=== PATIENT | male | born 1960 | race Caucasian/White ===

== ENCOUNTER → 2017-09-30 14:21 | Outpatient (CLI) | payer OTHER, SELFPAY ==
[2017-09-30 16:00] LABS: Absolute Lymphocyte Count 2.01 X10^3/ul (0.83-4.51); Basophil# 0.05 X10^3/uL; Basophil% 0.8 % (0-1); Eosinophil# 0.34 X10^3/uL; Eosinophils% 5.7 % (0-5); Hematocrit 46.2 % (40-54); Hemoglobin 14.9 g/dl (13.0-16.5); Lymphocyte # 2.01 X10^3/ul (4.0); Lymphocyte % 33.9 % (19-41); Mean Corp Hgb Conc 32.3 g/gl (32-36); Mean Corpuscular Hgb 29.4 pg (27.0-32.0); Mean Corpuscular Volume 91.3 fL (80-94); Mean Platelet Vol. 10.2 fl (6.2-12.0); Monocyte# 0.48 X10^3/uL; Monocyte% 8.1 % (0-10); Neutrophil # 3.04 X10^3/uL (2.7-7.7); Neutrophil % 51.3 % (47-70); Platelet Count 183 K/mm3 (150-450); RBC Distribution Width CV 13.4 % (11.6-14.6); RBC Distribution Width SD 44.1 fl (35.1-43.9); Red Blood Count 5.06 M/mm3 (4.6-6.2); White Blood Count 5.9 K/mm3 (4.4-11.0)
[2017-09-30 16:01] LABS: POSITIVE COUNT NO; POSITIVE DIFFERENTIAL NO; POSITIVE MORPHOLOGY NO
[2017-09-30 16:29] LABS: Thyroid Stim Hormone (TSH) 1.18 uIU/mL (0.358-3.74)
== END ==
PROVIDERS: Family Provider Family Medicine; PCP Family Medicine; Visit Provider Family Medicine
DX: R53.83 Other fatigue (principal)
CPT/HCPCS: 36415; 84403; 84443; 85025

== ENCOUNTER → 2018-01-21 10:20 | Outpatient (CLI) | payer OTHER, SELFPAY ==
--- NOTE | 2018-01-21 10:23 | RAD_ITS ---
STUDY: X-RAY CHEST REASON FOR EXAM: Male, 57 years old. Trauma TECHNIQUE: Frontal and lateral views of the chest COMPARISON: 03/06/2013 FINDINGS: The lungs are clear. There are no pleural effusions. There is no pneumothorax. The heart is normal in size. The visualized osseous structures are within normal limits. RAD/Chest PA and Lateral IMPRESSION: No acute thoracic pathology. Electronically Signed: Celso Dougherty, at 17:54 EDT Tel , Service support ,
== END ==
PROVIDERS: Family Provider Family Medicine; PCP Family Medicine; Visit Provider Family Medicine
DX: R05 Cough (principal)
CPT/HCPCS: 71046

== ENCOUNTER → 2018-04-01 08:44 | Outpatient (CLI) | payer OTHER, SELFPAY ==
[2018-04-01 11:41] LABS: AST(SGOT) 15 U/L (15-37); Alanine Aminotransfer ALT/SGPT 29 U/L (16-61); Albumin, Serum 3.9 g/dL (3.2-5.0); Alkaline Phosphatase 65 U/L (45-117); Anion Gap 8 (5-15); BUN 15 mg/dL (7-18); BUN/Creat Ratio 15.5 RATIO (10-20); Bilirubin, Direct 0.16 mg/dL (0.00-0.30); Chloride 102 mmol/L (98-107); Cholesterol 129 mg/dL (200); Creatinine, Serum 0.97 mg/dL (0.70-1.30); EST Glomerular Filtration Rate 84 mL/min (>60); Est Glom Filt Rate - Afr Amer 102 mL/min (>60); Globulin 3.4 g/dL (2.2-4.2); Glucose 146 mg/dL (74-106); High Density Lipoprotein 43 mg/dL; Potassium 4.2 mmol/L (3.5-5.1); Protein, Total 7.3 g/dL (6.4-8.2); Sodium Level 140 mmol/L (136-145); Triglycerides 142 mg/dL; Very Low Density Lipoprotein 28 mg/dL (5-40)
== END ==
PROVIDERS: Family Provider Family Medicine; PCP Family Medicine; Visit Provider Family Medicine
DX: E11.9 Type 2 diabetes mellitus without complications (principal)
CPT/HCPCS: 36415; 80048; 80061; 80076

== ENCOUNTER → 2019-01-27 | Outpatient (CLI) | payer OTHER, SELFPAY ==
[2019-01-25 16:12] VITALS: BMI 29.7
[2019-01-27 10:45] LABS: AST(SGOT) 9 U/L (15-37); Alanine Aminotransfer ALT/SGPT 24 U/L (16-61); Albumin, Serum 3.6 g/dL (3.2-5.0); Alkaline Phosphatase 72 U/L (45-117); Bilirubin, Direct 0.17 mg/dL (0.00-0.30); Cholesterol 123 mg/dL (200); Globulin 3.1 g/dL (2.2-4.2); High Density Lipoprotein 51 mg/dL; Protein, Total 6.7 g/dL (6.4-8.2); Triglycerides 99 mg/dL; Very Low Density Lipoprotein 20 mg/dL (5-40)
== END | disposition home or self-care (01) ==
LOC: MFPLAB 08:16
PROVIDERS: Family Provider Family Medicine; PCP Family Medicine; Visit Provider Internal Medicine Cardiovascular Disease
DX: E78.5 Hyperlipidemia, unspecified (principal)
CPT/HCPCS: 36415; 80061; 80076

== ENCOUNTER → 2019-03-07 15:40 | Outpatient (CLI) | payer OTHER, SELFPAY ==
[2019-01-25 16:12] VITALS: BMI 29.7
[2019-03-07 18:04] LABS: PSA,Total - Annual Screen 2.76 ng/mL (0.00-4.00)
== END ==
PROVIDERS: Family Provider Family Medicine; PCP Family Medicine; Referring Provider Urology; Visit Provider Urology
DX: Z12.5 Encounter for screening for malignant neoplasm of prostate (principal)
CPT/HCPCS: 36415; 84153; G0103

== ENCOUNTER → 2019-06-01 | Outpatient (CLI) | payer OTHER, SELFPAY ==
[2019-01-25 16:12] VITALS: BMI 29.7
[2019-06-01 18:04] LABS: Anion Gap 8 (5-15); BUN 13 mg/dL (7-18); BUN/Creat Ratio 13.3 RATIO (10-20); Calcium,Total 8.8 mg/dL (8.5-10.1); Chloride 105 mmol/L (98-107); Creatinine, Serum 0.98 mg/dL (0.70-1.30); EST Glomerular Filtration Rate 83 mL/min (>60); Est Glom Filt Rate - Afr Amer 100 mL/min (>60); Glucose 131 mg/dL (74-106); Potassium 3.8 mmol/L (3.5-5.1); Sodium Level 145 mmol/L (136-145)
== END | disposition home or self-care (01) ==
LOC: MFPLAB 16:48
PROVIDERS: Family Provider Family Medicine; PCP Family Medicine; Referring Provider Family Medicine; Visit Provider Family Medicine
DX: E11.9 Type 2 diabetes mellitus without complications (principal)
CPT/HCPCS: 36415; 80048

== ENCOUNTER → 2019-07-11 14:07 | Outpatient (CLI) | payer OTHER, SELFPAY ==
[2019-01-25 16:12] VITALS: BMI 29.7
[2019-07-11 13:40] VITALS: BMI 27.9
--- NOTE | 2019-07-11 14:08 | CT_ITS ---
STUDY: LOW DOSE CT LUNG CANCER SCREENING REASON FOR EXAM: Male, 58 years old. The patient is a smoking history a 72 pack year RADIATION DOSAGE (If Supplied By Facility): CTDIvol = ( 4.02 ) mGy, DLP = ( 115.31 ) mGycm TECHNIQUE: No contrast was administered. Low dose technique was utilized (average mAS-38 and kVp 120). 1.25 mm axial source images with a slice interval of 1.25-mm were reconstructed in lung windows. 2.5 mm axial source images with a slice interval of 2.5-mm were reconstructed in lung windows. 5.0 mm axial source images with a slice interval of 5.0-mm were reconstructed in soft tissue windows. Nodule measured using lung windows on PACS and/or independent workstation with automated measurement of minimum and maximum diameter. Nodule measurement reported as average diameter rounded to the nearest whole number. Growth is defined as an increase ins size of greater than 1.5 mm. COMPARISON: None. NODULES: There is a 4.9 mm noncalcified nodule in the anterior aspect of the right lower lobe adjacent to the right minor fissure. This is seen on axial image #94 and coronal image #180. Emphysema: No significant emphysema is seen. Aorta: Atherosclerotic calcification of the aortic arch. Coronary arteries: Coronary artery calcification. Heart: Unremarkable. Mediastinal nodes: No significant nodes are seen. Other chest and abdominal findings: CT/Low Dose CT Lung Screening IMPRESSION: Lung-RADS category 2 - Continue annual screening with LDCT in 12 months. IMPORTANT NOTES FOR USE: ACR Lung-RADS Version 1.0 Assessment Categories Release Date: November 20, 2013 Category: Coded 0-4 bases on nodule(s) with highest degree of suspicion. Negative screen is defined as categories 1 and 2; a positive screen is defined as categories 3 and 4. Category 3 and 4A nodules that are unchanged on interval CT should be coded as category 2, and individuals returned to screening in 12 months. Category 4X: Category 3 or 4 nodules with additional imaging findings that increase the suspicion of lung cancer, such as spiculation, GGN that doubles in size in 1 year, enlarged lymph notes, etc. Category Modifiers: S (significant finding unrelated to lung cancer) and C (prior history of treated lung cancer) may be added to the 0-4 Lung-RADS Electronically Signed: Pillo Gary, at 14:42 EST , Service support ,
== END ==
PROVIDERS: Family Provider Family Medicine; PCP Family Medicine; Referring Provider Nurse Practitioner Family; Visit Provider Nurse Practitioner Family
DX: Z12.2 Encounter for screening for malignant neoplasm of respiratory organs (principal); Z87.891 Personal history of nicotine dependence
CPT/HCPCS: G0297

== ENCOUNTER → 2019-08-23 10:39 | Outpatient (CLI) | payer OTHER, SELFPAY ==
[2019-07-11 13:40] VITALS: BMI 27.9
--- NOTE | 2019-08-23 10:43 | RAD_ITS ---
STUDY: X-RAY CHEST REASON FOR EXAM: Male, 58 years old. COUGH X2 WEEKS TECHNIQUE: Frontal and lateral views of the chest. COMPARISON: 01/21/18. FINDINGS: The lungs are hyperexpanded. There are coarsened interstitial markings suggestive of mild chronic fibrosis. No gross focal infiltrates. No gross effusions. Normal size heart. Normal mediastinum and florinda. There is prominence of the pulmonary hilar arteries without peripheral pulmonary vascular congestion, suggesting pulmonary hypertension. Normal visualized aortic arch and descending thoracic aorta. There are diffuse degenerative changes of the visualized thoracic spine. There is degenerative osteoarthritis of the bilateral shoulders. There is no demonstrated abnormality of the visualized soft tissue structures of the upper abdomen. RAD/Chest PA and Lateral IMPRESSION: No acute chest disease. No significant change. 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 Electronically Signed: David Coates MD at 23:00 EST , Service support ,
== END ==
PROVIDERS: PCP Family Medicine; Referring Provider Family Medicine; Visit Provider Family Medicine
DX: R05 Cough (principal)
CPT/HCPCS: 71046

== ENCOUNTER → 2020-01-30 12:11 | Outpatient (CLI) | payer OTHER, SELFPAY ==
[2020-01-25 15:14] VITALS: BMI 28.9
[2020-01-30 15:32] LABS: AST(SGOT) 11 U/L (15-37); Alanine Aminotransfer ALT/SGPT 24 U/L (16-61); Albumin, Serum 3.9 g/dL (3.2-5.0); Alkaline Phosphatase 98 U/L (45-117); Anion Gap 6 (5-15); BUN 15 mg/dL (7-18); BUN/Creat Ratio 18.5 RATIO (10-20); Bilirubin, Direct 0.24 mg/dL (0.00-0.30); Calcium,Total 8.7 mg/dL (8.5-10.1); Chloride 102 mmol/L (98-107); Cholesterol 107 mg/dL (200); Creatinine, Serum 0.81 mg/dL (0.70-1.30); EST Glomerular Filtration Rate 103 mL/min (>60); Est Glom Filt Rate - Afr Amer 124 mL/min (>60); Globulin 3.3 g/dL (2.2-4.2); Glucose 106 mg/dL (74-106); High Density Lipoprotein 40 mg/dL; Potassium 3.9 mmol/L (3.5-5.1); Protein, Total 7.2 g/dL (6.4-8.2); Sodium Level 140 mmol/L (136-145); Triglycerides 102 mg/dL; Very Low Density Lipoprotein 20 mg/dL (5-40)
== END ==
PROVIDERS: PCP Family Medicine; Visit Provider Family Medicine
DX: E11.9 Type 2 diabetes mellitus without complications (principal); E78.5 Hyperlipidemia, unspecified
CPT/HCPCS: 36415; 80048; 80061; 80076

== ENCOUNTER → 2020-03-21 08:58 | Outpatient (CLI) | payer OTHER, SELFPAY ==
[2020-01-25 15:14] VITALS: BMI 28.9
[2020-03-21 09:33] LABS: PSA,Total - Annual Screen 2.95 ng/mL (0.00-4.00)
== END ==
PROVIDERS: PCP Family Medicine; Referring Provider Urology; Visit Provider Urology
DX: Z12.5 Encounter for screening for malignant neoplasm of prostate (principal)
CPT/HCPCS: 36415; 84153; G0103

== ENCOUNTER → 2020-05-21 10:00 | Outpatient (CLI) | payer OTHER, SELFPAY ==
[2020-01-25 15:14] VITALS: BMI 28.9
== END ==
PROVIDERS: PCP Family Medicine; Referring Provider Internal Medicine Cardiovascular Disease; Visit Provider Internal Medicine Cardiovascular Disease
DX: R00.1 Bradycardia, unspecified (principal); R42 Dizziness and giddiness; R53.83 Other fatigue; I25.10 Atherosclerotic heart disease of native coronary artery without angina pectoris
CPT/HCPCS: 93225; 93226

== ENCOUNTER → 2020-05-23 10:03 | Outpatient (CLI) | payer OTHER, SELFPAY ==
[2020-01-25 15:14] VITALS: BMI 28.9
[2020-05-23 11:25] LABS: Anion Gap 6 (5-15); BUN 14 mg/dL (7-18); BUN/Creat Ratio 15.3 RATIO (10-20); Chloride 102 mmol/L (98-107); Creatinine, Serum 0.92 mg/dL (0.70-1.30); EST Glomerular Filtration Rate 89 mL/min (>60); Est Glom Filt Rate - Afr Amer 108 mL/min (>60); Glucose 115 mg/dL (74-106); Magnesium 2.1 mg/dL (1.6-2.6); Sodium Level 140 mmol/L (136-145)
== END ==
PROVIDERS: PCP Family Medicine; Referring Provider Internal Medicine Cardiovascular Disease; Visit Provider Internal Medicine Cardiovascular Disease
DX: I49.1 Atrial premature depolarization (principal); I49.3 Ventricular premature depolarization; I25.10 Atherosclerotic heart disease of native coronary artery without angina pectoris; I10 Essential (primary) hypertension; Z95.5 Presence of coronary angioplasty implant and graft
CPT/HCPCS: 36415; 80048; 83735; 84443

== ENCOUNTER → 2020-07-16 12:46 | Outpatient (CLI) | payer OTHER, SELFPAY ==
[2020-01-25 15:14] VITALS: BMI 28.9
[2020-07-16 12:12] VITALS: BMI 28.3
--- NOTE | 2020-07-16 12:48 | CT_ITS ---
STUDY: LOW DOSE CT LUNG CANCER SCREENING REASON FOR EXAM: Male, 59 years old. FORMER SMOKER, QUIT 2012. 1.5 PPD X 36 YEARS. RADIATION DOSAGE (If Supplied By Facility): CTDIvol = ( 3.40 ) mGy, DLP = ( 111.46 ) mGycm TECHNIQUE: No contrast was administered. Low dose technique was utilized (average mAS-38 and kVp 120). 1.25 mm axial source images with a slice interval of 1.25-mm were reconstructed in lung windows. 2.5 mm axial source images with a slice interval of 2.5-mm were reconstructed in lung windows. 5.0 mm axial source images with a slice interval of 5.0-mm were reconstructed in soft tissue windows. Nodule measured using lung windows on PACS and/or independent workstation with automated measurement of minimum and maximum diameter. Nodule measurement reported as average diameter rounded to the nearest whole number. Growth is defined as an increase ins size of greater than 1.5 mm. COMPARISON: Comparison is made with prior study dated 07/11/2019. NODULES: Stable 4.9 mm noncalcified nodule in the anterior aspect of the right lower lobe adjacent to the right minor fissure as seen on axial image #2017. Emphysema: No significant emphysematous changes are seen. Endobronchial lesion: None Aorta: Atherosclerotic plaque formation at the level of the aortic arch. Coronary arteries: Coronary artery calcification. Heart: Unremarkable. Pulmonary artery: Unremarkable. Mediastinal nodes: Small benign-appearing mediastinal lymph nodes. Other chest and abdominal findings: Degenerative changes of the dorsal spine. CT/Low Dose CT Lung Screening IMPRESSION: Lung-RADS category 2 - Continue annual screening with LDCT in 12 months. IMPORTANT NOTES FOR USE: ACR Lung-RADS Version 1.0 Assessment Categories Release Date: November 20, 2013 Category: Coded 0-4 bases on nodule(s) with highest degree of suspicion. Negative screen is defined as categories 1 and 2; a positive screen is defined as categories 3 and 4. Category 3 and 4A nodules that are unchanged on interval CT should be coded as category 2, and individuals returned to screening in 12 months. Category 4X: Category 3 or 4 nodules with additional imaging findings that increase the suspicion of lung cancer, such as spiculation, GGN that doubles in size in 1 year, enlarged lymph notes, etc. Category Modifiers: S (significant finding unrelated to lung cancer) and C (prior history of treated lung cancer) may be added to the 0-4 Lung-RADS Electronically Signed: Pillo Gary, at 13:30 EST , Service support ,
== END ==
PROVIDERS: PCP Family Medicine; Visit Provider Nurse Practitioner Family
DX: Z12.2 Encounter for screening for malignant neoplasm of respiratory organs (principal); Z87.891 Personal history of nicotine dependence
CPT/HCPCS: G0297

== ENCOUNTER → 2020-09-02 12:04 | Outpatient (CLI) | payer OTHER, SELFPAY ==
[2020-07-16 12:12] VITALS: BMI 28.3
--- NOTE | 2020-09-02 12:20 | RAD_ITS ---
STUDY: X-RAY - RIGHT SHOULDER REASON FOR EXAM: Male, 59 years old. CHRONIC SHOULDER PAIN, NKI TECHNIQUE: 4 view(s) of the shoulder. COMPARISON: None. FINDINGS: There is mild degenerative arthrosis of the glenohumeral articulation. Normal acromioclavicular joint. Normal acromion. Normal humeral head and visualized proximal humerus. The soft tissue structures are unremarkable. Normal visualized pulmonary apex. RAD/Shoulder min 2 Views IMPRESSION: Mild degree of degenerative changes. Electronically Signed: Pillo Gary MD at 12:17 EST , Service support ,
--- NOTE | 2020-09-02 12:20 | RAD_ITS ---
STUDY: X-RAY - LEFT SHOULDER REASON FOR EXAM: Male, 59 years old. CHRONIC SHOULDER PAIN, NKI TECHNIQUE: 4 view(s) of the shoulder. COMPARISON: None. FINDINGS: Normal glenohumeral articulation. Normal acromioclavicular joint. Normal acromion. Normal humeral head and visualized proximal humerus. The soft tissue structures are unremarkable. Normal visualized pulmonary apex. RAD/Shoulder min 2 Views IMPRESSION: Normal x-ray examination of the shoulder. Electronically Signed: Pillo Gary MD at 12:21 EST , Service support ,
== END ==
PROVIDERS: PCP Family Medicine; Referring Provider Family Medicine; Visit Provider Family Medicine
DX: M25.511 Pain in right shoulder (principal); M25.512 Pain in left shoulder
CPT/HCPCS: 73030

== ENCOUNTER 2020-10-02 09:30 | Outpatient (RCR) | payer OTHER, SELFPAY ==
[2020-07-16 12:12] VITALS: BMI 28.3
--- NOTE | 2020-09-11 09:32 | HP.PTEVAL_ITS ---
Patient's Visit Information HEIDY DELEON is a 59 year old M referred to Physical Therapy by Dr. Pradeep Alvarado MD with a diagnosis of B shoulder pain. Date of Evaluation: 09/11/20 Physical Therapist: Omega Snyder PT, ATC - Visit Plan Frequency: 2x /Week Duration: 1 Week Plan: Issue and instruct pt after 2 sessions of B rot cuff strengthening and scap stab ex's. - Subjective Pt notes B shoulder pain for years. Pt notes his pain has progressively worsened over the past few years. Pt reports his pain has an insidious onset in nature. Pt reports sleep difficulty secondary to pain. Pt reports he has severe pain anytime he is laying on it. Pt also notes he had a cortisone injection last week in the R shoulder that has helped with pain and movement. Pt has had several xrays over the year which revealed OA in B shoulders. No tingling or numbness at this time. Pt reports reaching behid his back results in increased pain. Pt is R hand dominant. R shoulder pain is worse than L shoulder pain. R shoulder 3-7/10, L shoulder 2-5/10 - Pain R shoulder pain Pain Intensity (Out of 10): 3 Pain Intensity Range: 7 Lshoulder pain Pain Intensity (Out of 10): 2 Pain Intensity Range: 5 - Objective Neuro: B UE sensation is WNL to light touch. B bicepital reflex= 1/3. Palpati on: Pt is sore along the LHB tendon and supraspinatus in R shoulder. No obvious deformity. ROM: L shoulder flex= 145, abd= 145, ER= 15, IR WNL; R shoulder flex= 120, abd= 110, ER 10, IR moderately limited. MMT: R shoulder ER 4/5. All other measurements 4+/5 in available ROM. Special testing: POs empty can and impingement tests - Goals Goal 1:: I with a HEP after 2 sessions Goal Time Frame: 2 Weeks - Rehabilitation Potential Physical Therapy Diagnosis: Pt has B shoulder pain, weakness, and limited ROM secondary to impingement syndrome of B shoulders Rehabilitation Potential: Good - Anticipated Interventions Patient/Client Instruction: Educate patient on: Condition, Plan of Care For the Purpose of:: To improve self management Therapeutic Exercise to Include: Strength training, Body mechanics, Active ROM, Scapular Strength/Stabilization For the Purpose of:: To decrease pain, To increase ROM, To improve muscle performance and motor function Cryotherapy (ice pack, ice massage): Yes For the Purpose of:: To decrease pain Thank you for the opportunity to evaluate your patient. For Medicare and Medicare HMO plans, please review the plan of care and approve it. It will need to be FAXED BACK to us at [phone] for Medicare purposes. For Medicare only, by signing this I certify the plan of care. Please let me know if there are questions or concerns regarding this plan of care. Physician Signature: Date:
--- NOTE | 2021-02-17 12:33 | HP.PTDCNRP_ITS ---
HEIDY DELEON was seen in my office for initial evaluation on 09/11/20. The following Plan of Care was established for this patient: Initial Frequency: 2x /Week Initial Duration: 1 Week Patient/Client Instruction: Educate patient on: Condition, Plan of Care For the Purpose of:: To improve self management Therapeutic Exercise to Include: Strength training, Body mechanics, Active ROM, Scapular Strength/Stabilization For the Purpose of:: To decrease pain, To increase ROM, To improve muscle performance and motor function Cryotherapy (ice pack, ice massage): Yes For the Purpose of:: To decrease pain This patient was last seen in our office . Pertinent comments regarding their Physical therapy will appear below: Pt was treated for 3 PT visits for B shoulder pain through the date of 10/02/2020. Pt has not returned through this date and is discharged at this time. At this point I will be discontinuing this patient from physical therapy. I wo uld be happy to see this patient again in the future if found appropriate by the physician. Thank you! Omega Snyder, PT, ATC Balance/Gait/Functional tests - Balance/Special Test Scores Quick DASH Score: 15.9075
== END 2020-10-02 19:00 | disposition home or self-care (01) ==
LOC: PT 09:30
PROVIDERS: PCP Family Medicine; Referring Provider Family Medicine; Visit Provider Family Medicine
DX: M25.511 Pain in right shoulder (principal); M25.512 Pain in left shoulder
CPT/HCPCS: 97110; 97161

== ENCOUNTER 2020-10-08 14:58 | Outpatient (RCR) | payer OTHER, SELFPAY ==
[2020-07-16 12:12] VITALS: BMI 28.3
[2020-10-08] MEDS: COVID-19 VACC, MRNA(PFIZER)/PF 30 MCG/0.3 ML SYRINGE IM (08:50)
[2020-10-29] MEDS: COVID-19 VACC, MRNA(PFIZER)/PF 30 MCG/0.3 ML SYRINGE IM (09:06)
== END 2020-12-31 23:59 ==
LOC: IMMUN 14:58
PROVIDERS: PCP Family Medicine; Referring Provider Family Medicine; Visit Provider Family Medicine
DX: Z23 Encounter for immunization (principal)
CPT/HCPCS: 0001A; 0002A; 91300

== ENCOUNTER → 2020-12-05 13:48 | Outpatient (CLI) | payer OTHER, SELFPAY ==
[2020-07-16 12:12] VITALS: BMI 28.3
[2020-12-05 15:45] LABS: Anion Gap 2 (5-15); BUN 14 mg/dL (7-18); BUN/Creat Ratio 18.6 RATIO (10-20); Chloride 103 mmol/L (98-107); Cholesterol 148 mg/dL (200); Creatinine, Serum 0.75 mg/dL (0.70-1.30); EST Glomerular Filtration Rate 111 mL/min (>60); Est Glom Filt Rate - Afr Amer 135 mL/min (>60); Glucose 108 mg/dL (74-106); High Density Lipoprotein 53 mg/dL; Potassium 3.8 mmol/L (3.5-5.1); Sodium Level 139 mmol/L (136-145); Triglycerides 186 mg/dL; Very Low Density Lipoprotein 37 mg/dL (5-40)
== END ==
PROVIDERS: PCP Family Medicine; Referring Provider Family Medicine; Visit Provider Family Medicine
DX: E11.9 Type 2 diabetes mellitus without complications (principal)
CPT/HCPCS: 36415; 80048; 80061

== ENCOUNTER → 2021-06-12 11:16 | Outpatient (CLI) | payer OTHER, SELFPAY ==
[2021-06-12 12:54] LABS: Anion Gap 4 (5-15); BUN 12 mg/dL (7-18); BUN/Creat Ratio 14.4 RATIO (10-20); Calcium,Total 9.1 mg/dL (8.5-10.1); Chloride 104 mmol/L (98-107); Cholesterol 126 mg/dL (200); Creatinine, Serum 0.83 mg/dL (0.70-1.30); EST Glomerular Filtration Rate 99 mL/min (>60); Est Glom Filt Rate - Afr Amer 120 mL/min (>60); Glucose 113 mg/dL (74-106); High Density Lipoprotein 50 mg/dL; PSA,Total - Annual Screen 2.65 ng/mL (0.00-4.00); Potassium 4.1 mmol/L (3.5-5.1); Sodium Level 138 mmol/L (136-145); Triglycerides 99 mg/dL; Very Low Density Lipoprotein 20 mg/dL (5-40)
== END ==
PROVIDERS: PCP Family Medicine; Referring Provider Family Medicine; Visit Provider Family Medicine
DX: E11.9 Type 2 diabetes mellitus without complications (principal); Z12.5 Encounter for screening for malignant neoplasm of prostate
CPT/HCPCS: 36415; 80048; 80061; 84153; G0103

== ENCOUNTER → 2021-06-23 08:32 | Outpatient (CLI) | payer OTHER, SELFPAY | PROVIDERS: PCP Family Medicine; Referring Provider Internal Medicine Cardiovascular Disease; Visit Provider Internal Medicine Cardiovascular Disease | DX: I49.3 Ventricular premature depolarization (principal); I49.1 Atrial premature depolarization; R42 Dizziness and giddiness | CPT/HCPCS: 93225; 93226 ==

== ENCOUNTER 2021-07-29 13:49 | Outpatient (CLI) | payer OTHER, SELFPAY ==
--- NOTE | 2021-07-29 13:55 | CT_ITS ---
STUDY: LOW DOSE CT LUNG CANCER SCREENING REASON FOR EXAM: Male, 60 years old. Lung cancer screening -- 80 pk yr hx; former smoker;asymptomatic RADIATION DOSAGE (If Supplied By Facility): CTDIvol = ( 3.18 ) mGy, DLP = ( 93.30 ) mGycm TECHNIQUE: No contrast was administered. Low dose technique was utilized (average mAS-38 and kVp 120). 1.25 mm axial source images with a slice interval of 1.25-mm were reconstructed in lung windows. 2.5 mm axial source images with a slice interval of 2.5-mm were reconstructed in lung windows. 5.0 mm axial source images with a slice interval of 5.0-mm were reconstructed in soft tissue windows. Nodule measured using lung windows on PACS and/or independent workstation with automated measurement of minimum and maximum diameter. Nodule measurement reported as average diameter rounded to the nearest whole number. Growth is defined as an increase ins size of greater than 1.5 mm. COMPARISON: Comparison is made with prior study dated 07/16/2020. NODULES: Stable 4.9 mm noncalcified nodule in the anterior aspect of the right lower lobe adjacent to the right minor fissure as seen on axial image #109. Emphysema: No significant emphysema is seen. Endobronchial lesion: None Aorta: Atherosclerotic plaque formation of the aortic arch. Coronary arteries: Coronary artery calcification. Heart: Unremarkable Pulmonary artery: Unremarkable Mediastinal nodes: Unremarkable Other chest and abdominal findings: CT/Low Dose CT Lung Screening IMPRESSION: Lung-RADS category 2 - Continue annual screening with LDCT in 12 months. IMPORTANT NOTES FOR USE: ACR Lung-RADS Version 1.1 Assessment Categories Release Date: 2018 Category: Coded 0-4 bases on nodule(s) with highest degree of suspicion. Negative screen is defined as categories 1 and 2; a positive screen is defined as categories 3 and 4. Category 3 and 4A nodules that are unchanged on interval CT should be coded as category 2, and individuals returned to screening in 12 months. Category 4X: Category 3 or 4 nodules with additional imaging findings that increase the suspicion of lung cancer, such as spiculation, GGN that doubles in size in 1 year, enlarged lymph notes, etc. Category Modifiers: S (significant finding unrelated to lung cancer) Electronically Signed: Pillo Gary MD at 14:25 EST , Service support ,
== END 2021-07-29 23:59 | disposition short-term general hospital (02) ==
PROVIDERS: PCP Family Medicine; Referring Provider Nurse Practitioner Family; Visit Provider Nurse Practitioner Family
DX: Z12.2 Encounter for screening for malignant neoplasm of respiratory organs (principal); Z87.891 Personal history of nicotine dependence
CPT/HCPCS: 71271

== ENCOUNTER 2021-08-13 10:47 | Outpatient (CLI) | payer OTHER, SELFPAY ==
[2021-08-13 12:37] LABS: Absolute Lymphocyte Count 1.75 X10^3/uL (0.83-4.51); Absolute Neutrophil Count 3.5 X10^3/uL (2.0-7.7); Basophil# 0.04 X10^3/uL; Basophil% 0.7 % (0-1); Eosinophil# 0.17 X10^3/uL; Eosinophils% 2.9 % (0-5); Hematocrit 46.5 % (40-54); Hemoglobin 15.1 g/dL (13.0-16.5); Lymphocyte # 1.75 X10^3/ul (0.83-4.51); Lymphocyte % 29.8 % (19-41); Mean Corp Hgb Conc 32.5 g/dL (32-36); Mean Corpuscular Hgb 30.5 pg (27.0-32.0); Mean Corpuscular Volume 93.9 fL (80-94); Mean Platelet Vol. 10.6 fl (6.2-12.0); Monocyte# 0.41 X10^3/uL; NRBC Flagged by Analyzer 0 % (0-5); Neutrophil # 3.49 X10^3/uL (2.7-7.7); Neutrophil % 59.4 % (47-70); Platelet Count 176 K/mm3 (150-450); RBC Distribution Width CV 13.2 % (11.6-14.6); RBC Distribution Width SD 45.3 fl (35.1-43.9); Red Blood Count 4.95 M/mm3 (4.6-6.2); White Blood Count 5.9 K/mm3 (4.4-11.0)
[2021-08-13 12:46] LABS: Free T3 2.1 pg/mL (2.18-3.98); T4 Free Direct 1.07 ng/dL (0.76-1.46); Thyroid Stim Hormone (TSH) 1.18 uIU/mL (0.358-3.74)
== END 2021-08-13 23:59 | disposition short-term general hospital (02) ==
LOC: MFPLAB 10:48
PROVIDERS: PCP Family Medicine; Referring Provider Family Medicine; Visit Provider Physician Assistant Medical
DX: R53.83 Other fatigue (principal); E11.9 Type 2 diabetes mellitus without complications; I25.10 Atherosclerotic heart disease of native coronary artery without angina pectoris; E78.5 Hyperlipidemia, unspecified; R00.1 Bradycardia, unspecified; I10 Essential (primary) hypertension
CPT/HCPCS: 36415; 84439; 84443; 84481; 85025

== ENCOUNTER 2021-08-19 07:15 | Outpatient (CLI) | payer OTHER, SELFPAY ==
--- NOTE | 2021-08-19 07:17 | ECHOCS_ITS ---
Reason For Study: ARRHYTHMIA Procedure This was a 2D Doppler, Color Flow transthoracic echocardiogram. The study was technically difficult. Due to arrhythmia. Contrast injection was performed. Exam performed in department. Left Ventricle Normal LV size. Left ventricular systolic function is normal. The estimated ejection fraction is 55 %. Unable to assess diastolic dysfunction. No regional wall motion abnormalities noted. Right Ventricle Normal RV size. Normal systolic function. Atria Normal left atrium. Normal right atrium. No doppler evidence for ASD. Mitral Valve There is no mitral annular calcification. Normal mitral valve. Trivial mitral valve insufficiency. Tricuspid Valve Normal tricuspid valve. Trivial tricuspid valve insufficiency. Right ventricular systolic pressure estimated to be 33 mmHg. Aortic Valve Trisinus/trileaflet aortic valve. Normal aortic valve. Pulmonic Valve The pulmonic valve is not well visualized. Great Vessels Borderline-mildly dilated aortic root. Pericardium/Pleural No pericardial effusion. Medication Diluted definity 4.0ml given slow IV push to enhance endocardial definition. MMode/2D Measurements & Calculations LVIDd: 5.3 cm IVSd: 0.96 cm Ao root diam: 4.1 cm LVIDs: 4.0 cm LVPWd: 0.90 cm RVDd: 3.7 cm FS: 25.7 % LAV(MOD-bp): 54.2 ml LA A4 area: 18.7 cm2 LA dimension(2D): 4.5 cm LAV(MOD-bp) Indexed: 24.4 ml/m2 LAV(MOD-sp2): 58.6 ml LAV(MOD-sp4): 49.5 ml RA A4 area: 21.0 cm2 Time Measurements MV dec time: 0.22 sec Doppler Measurements & Calculations MV E max itzel: 62.7 cm/sec Ao V2 max: 146.7 cm/sec LV V1 max: 114.1 cm/sec MV A max itzel: 54.7 cm/sec Ao max P.6 mmHg LV V1 max P.2 mmHg MV E/A: 1.1 PA V2 max: 94.4 cm/sec TR max itzel: 273.3 cm/sec TR max P.9 mmHg ECHO/Echo Complete W/ Contrast Interpretation Summary The study was technically difficult. Contrast injection was performed. Left ventricular systolic function is normal. The estimated ejection fraction is 55 %. Trivial mitral valve insufficiency. Trivial tricuspid valve insufficiency. Borderline-mildly dilated aortic root. Right ventricular systolic pressure estimated to be 33 mmHg. Unable to assess diastolic dysfunction. Ordering Physician: Sara Brandon Referring Physician: Pradeep Alvarado Performed By: Regina Polk, CAROLANN, RVT
--- NOTE | 2021-08-19 09:38 | STRESSREP_ITS ---
Stress Test Report Date: 08-19-2021 Procedure: Exercise tolerance test/imaging study Indications: Cardiac ectopy; PACs; PVCs; CAD; PCI Consent: Per the patient Procedure: The patient exercised on a Paul protocol for 5 minutes and 9 seconds completing Stage I and 2 minutes and 9 seconds of Stage II achieving a peak heart rate of 139 bpm (87% predicted maximal heart rate) with a peak blood pressure 160/84 mmHg and a peak MET capacity of 7 METs. The baseline ECG demonstrated sinus rhythm; PVCs; poor R wave progression; nonspecific T wave abnormality. The peak exercise ECG demonstrated no obvious ECG changes. There were occasional PVCs pretest, during exercise, and recovery, and episodes of nonsustained wide-complex rhythm during exercise potentially compatible with a rate related aberrancy, however, underlying ventricular ectopy cannot necessarily be excluded. The functional capacity was considered average. There was no complaint of chest discomfort during exercise or recovery. The examination was discontinued secondary to dyspnea. Impression: 1. Technically adequate (percent predicted maximal heart rate greater than 85%) exercise tolerance test 2. Peak exercise ECG with no obvious ECG changes 3. There were occasional PVCs pretest, during exercise, and recovery, and episodes of nonsustained wide-complex rhythm during exercise potentially compatible with a rate related aberrancy, however, underlying ventricular ectopy cannot necessarily be excluded 4. Nuclear images pending Myocardial perfusion imaging study: Technique: The patient was injected with 14.4 mCi of technetium 99m Cardiolite and subsequently rest SPECT Cardiolite nuclear imaging was obtained in the horizontal long, vertical long, and short axis views. The patient exercised on a Paul protocol for 5 minutes and 9 seconds completing Stage I and 2 minutes and 9 seconds of Stage II achieving a peak heart rate of 139 bpm (87% predicted maximal heart rate) with a peak blood pressure 160/84 mmHg and a peak MET capacity of 7 METs. The patient was injected with 44.1 mCi of technetium 99m Cardiolite and subsequently stress SPECT Cardiolite nuclear imaging was obtained in the horizontal long, vertical long, and short axis views. A gated Cardiolite study at peak stress was obtained. Interpretation: Rest and stress SPECT Cardiolite nuclear imaging status post realignment, normalization, and attenuation correction, demonstrates the appearance of relative uniform tracer uptake and myocardial perfusion appearing within normal limits. There is end systolic thickening and brightening. The gated Cardiolite study demonstrates myocardial thickening and inward wall motion. The reported LVEF is 43%. Impression: 1. Rest and stress SPECT Cardiolite nuclear imaging demonstrate relative uniform tracer uptake and myocardial perfusion appearing within normal limits. 2. The gated Cardiolite study reports an LVEF of 43=%. This note was generated with [employer] software. It may contain incorrect words, spelling, and punctuation that were not noted in checking the note before signing.
== END 2021-08-19 23:59 | disposition short-term general hospital (02) ==
LOC: CVS 07:15
PROVIDERS: PCP Family Medicine; Referring Provider Physician Assistant Medical; Visit Provider Physician Assistant Medical
DX: I25.10 Atherosclerotic heart disease of native coronary artery without angina pectoris (principal); E11.9 Type 2 diabetes mellitus without complications; I10 Essential (primary) hypertension; I49.1 Atrial premature depolarization; I49.3 Ventricular premature depolarization; E78.5 Hyperlipidemia, unspecified; R53.83 Other fatigue; R00.1 Bradycardia, unspecified
CPT/HCPCS: 78452; 93017; 93306; A9500; Q9957; A4216; C8929

== ENCOUNTER → 2022-09-08 | Outpatient (CLI) | payer OTHER, SELFPAY ==
--- NOTE | 2022-09-08 15:11 | CT_ITS ---
STUDY: LOW DOSE CT LUNG CANCER SCREENING REASON FOR EXAM: Male, 61 years old. Lung cancer screening -- 80 pk yr hx; former smoker; asymptomatic RADIATION DOSAGE (If Supplied By Facility): CTDIvol = ( 4.02 ) mGy, DLP = ( 119.84 ) mGycm TECHNIQUE: No contrast was administered. Low dose technique was utilized (average mAS-38 and kVp 120). 1.25 mm axial source images with a slice interval of 1.25-mm were reconstructed in lung windows. 2.5 mm axial source images with a slice interval of 2.5-mm were reconstructed in lung windows. 5.0 mm axial source images with a slice interval of 5.0-mm were reconstructed in soft tissue windows. COMPARISON: Comparison is made with prior study dated 07/29/2021. NODULES: Stable 4.5 mm noncalcified nodule in the anterior aspect of the right lower lobe adjacent to the right minor fissure as seen on axial image #97. Emphysema: No significant emphysematous changes are seen. Endobronchial lesion: None Aorta: Mild atherosclerotic plaque formation of the aortic arch. CORONARY ARTERIES: Coronary artery calcification is seen. Heart: Unremarkable Pulmonary artery: Unremarkable Mediastinal nodes: Unremarkable Other chest and abdominal findings: CT/Low Dose CT Lung Screening IMPRESSION: Lung-RADS category 3 - Continue screening with LDCT in 6 months. IMPORTANT NOTES FOR USE: ACR Lung-RADS Version 1.1 Assessment Categories Release Date: 2018 Category: Coded 0-4 bases on nodule(s) with highest degree of suspicion. Negative screen is defined as categories 1 and 2; a positive screen is defined as categories 3 and 4. Category 3 and 4A nodules that are unchanged on interval CT should be coded as category 2, and individuals returned to screening in 12 months. Category 4X: Category 3 or 4 nodules with additional imaging findings that increase the suspicion of lung cancer, such as spiculation, GGN that doubles in size in 1 year, enlarged lymph notes, etc. Category Modifiers: S (significant finding unrelated to lung cancer) Electronically Signed: Pillo Gary MD at 15:34 EST ,
== END | disposition home or self-care (01) ==
LOC: CT 15:10
PROVIDERS: PCP Family Medicine; Referring Provider Nurse Practitioner Family; Visit Provider Nurse Practitioner Family
DX: Z12.2 Encounter for screening for malignant neoplasm of respiratory organs (principal); Z87.891 Personal history of nicotine dependence
CPT/HCPCS: 71271

== ENCOUNTER → 2023-09-21 | Outpatient (CLI) | payer MEDICARE, SELFPAY ==
--- NOTE | 2023-09-21 12:07 | CT_ITS ---
STUDY: LOW DOSE CT LUNG CANCER SCREENING REASON FOR EXAM: Male, 62 years old. Lung cancer screening -- 80 pk yr hx;former smoker; asymptomatic RADIATION DOSAGE (If Supplied By Facility): CTDIvol = ( 3.02 ) mGy, DLP = ( 102.69 ) mGycm TECHNIQUE: No contrast was administered. Low dose technique was utilized (average mAS-38 and kVp 120). 1.25 mm axial source images with a slice interval of 1.25-mm were reconstructed in lung windows. 2.5 mm axial source images with a slice interval of 2.5-mm were reconstructed in lung windows. 5.0 mm axial source images with a slice interval of 5.0-mm were reconstructed in soft tissue windows. COMPARISON: Comparison is made with prior study dated September 08, 2022. NODULES: Stable 4 mm noncalcified nodule in the anterior aspect of the right lower lobe adjacent to the right minor fissure as seen on axial image #116. Emphysema: No significant emphysematous changes are seen. Endobronchial lesion: None Aorta: Mild atherosclerotic plaque formation of the aortic arch. CORONARY ARTERIES: Coronary artery calcification is seen. Heart: Unremarkable Pulmonary artery: Unremarkable Mediastinal nodes: Unremarkable Other chest and abdominal findings: CT/Low Dose CT Lung Screening IMPRESSION: Lung-RADS category 2 - Continue annual screening with LDCT in 12 months. IMPORTANT NOTES FOR USE: ACR Lung-RADS Version 1.1 Assessment Categories Release Date: 2018 Category: Coded 0-4 bases on nodule(s) with highest degree of suspicion. Negative screen is defined as categories 1 and 2; a positive screen is defined as categories 3 and 4. Category 3 and 4A nodules that are unchanged on interval CT should be coded as category 2, and individuals returned to screening in 12 months. Category 4X: Category 3 or 4 nodules with additional imaging findings that increase the suspicion of lung cancer, such as spiculation, GGN that doubles in size in 1 year, enlarged lymph notes, etc. Category Modifiers: S (significant finding unrelated to lung cancer) Electronically Signed: Pillo Gary MD at 12:52 EST ,
== END | disposition home or self-care (01) ==
PROVIDERS: PCP Family Medicine; Referring Provider Nurse Practitioner Family; Visit Provider Nurse Practitioner Family
DX: Z12.2 Encounter for screening for malignant neoplasm of respiratory organs (principal); Z87.891 Personal history of nicotine dependence
CPT/HCPCS: 71271

== ENCOUNTER → 2024-01-17 | Outpatient (CLI) | payer MEDICARE, SELFPAY ==
[2024-01-17 10:36] LABS: ALB/GLOB Ratio 1.3 RATIO (0.9-2.4); AST(SGOT) 13 U/L (15-37); Alanine Aminotransfer ALT/SGPT 23 U/L (16-61); Albumin, Serum 3.9 g/dL (3.2-5.0); Alkaline Phosphatase 72 U/L (45-117); Anion Gap 6 (5-15); BUN 16 mg/dL (7-18); BUN/Creat Ratio 15.5 RATIO (10-20); Calcium,Total 8.9 mg/dL (8.5-10.1); Chloride 102 mmol/L (98-107); Cholesterol 127 mg/dL (200); Creatinine, Serum 1.03 mg/dL (0.70-1.30); EST Glomerular Filtration Rate 77 mL/min (>60); Est Glom Filt Rate - Afr Amer 93 mL/min (>60); Globulin 3.1 g/dL (2.2-4.2); Glucose 129 mg/dL (74-106); High Density Lipoprotein 51 mg/dL; Potassium 3.6 mmol/L (3.5-5.1); Sodium Level 139 mmol/L (136-145); Triglycerides 109 mg/dL; Very Low Density Lipoprotein 22 mg/dL (5-40)
== END | disposition home or self-care (01) ==
PROVIDERS: PCP Family Medicine; Visit Provider Family Medicine
DX: E11.9 Type 2 diabetes mellitus without complications (principal)
CPT/HCPCS: 36415; 80053; 80061

== ENCOUNTER → 2024-03-15 | Outpatient (CLI) | payer MEDICARE, SELFPAY ==
--- NOTE | 2024-03-15 09:33 | RAD_ITS ---
STUDY: X-RAY - PELVIS AND RIGHT HIP REASON FOR EXAM: Male, 63 years old. pain TECHNIQUE: 3 views of the pelvis and hip. COMPARISON: None. FINDINGS: There is a non-specific bowel gas pattern. Normal visualized soft tissue structures. Normal bilateral iliac wings, sacroiliac joints and visualized sacrum. Normal bilateral superior and inferior pubic rami. Normal pubic symphysis. Normal bilateral ischial tuberosities. Normal visualized femoral head. Normal acetabulum. Normal hip joint. RAD/HIP, UNI W/ Pelvis 2-3 Views IMPRESSION: Normal x-ray examination of the pelvis and hip. Electronically Signed: Arnaldo Govea MD at 12:40 EDT ,
== END | disposition home or self-care (01) ==
LOC: MTRAD 09:29
PROVIDERS: PCP Family Medicine; Referring Provider Family Medicine; Visit Provider Family Medicine
DX: M25.551 Pain in right hip (principal)
CPT/HCPCS: 73502

== ENCOUNTER → 2024-04-18 | Outpatient (CLI) | payer MEDICARE, SELFPAY ==
[2024-04-18 13:17] LABS: PSA,Total- Diagnostic 2.58 ng/mL (0.0-4.0)
== END | disposition home or self-care (01) ==
PROVIDERS: PCP Family Medicine; Referring Provider Urology; Visit Provider Urology
DX: N40.1 Benign prostatic hyperplasia with lower urinary tract symptoms (principal)
CPT/HCPCS: 36415; 84153

== ENCOUNTER 2024-06-14 13:20 | Observation (INO) | payer MEDICARE, SELFPAY ==
--- NOTE | 2024-06-12 08:57 | EKG12_ITS ---
Test Reason : PREOP Blood Pressure : */* mmHG Vent. 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
[2024-06-12 09:33] LABS: Hematocrit 50.9 % (40-54); Hemoglobin 16.3 g/dL (13.0-16.5); Mean Corpuscular Hgb 29.8 pg (27.0-32.0); Mean Corpuscular Volume 93.1 fL (80-94); Platelet Count 187 K/mm3 (150-450); RBC Distribution Width SD 44.2 fl (35.1-43.9); Red Blood Count 5.47 M/mm3 (4.6-6.2); White Blood Count 7.6 K/mm3 (4.4-11.0)
[2024-06-12 10:10] LABS: Anion Gap 5 (5-15); BUN 16 mg/dL (7-18); BUN/Creat Ratio 16.4 RATIO (10-20); Calcium,Total 9.1 mg/dL (8.5-10.1); Chloride 102 mmol/L (98-107); Creatinine, Serum 0.97 mg/dL (0.70-1.30); EST Glomerular Filtration Rate 82 mL/min (>60); Est Glom Filt Rate - Afr Amer 99 mL/min (>60); Glucose 145 mg/dL (74-106); Potassium 3.8 mmol/L (3.5-5.1); Sodium Level 139 mmol/L (136-145)
[2024-06-12 10:14] LABS: Hemoglobin A1c 6.2 % (3.8-5.6)
[2024-06-14] VITALS (17 sets, daily range): BP systolic 85–159; BP diastolic 54–109; PULSE 53–71; RESP 14–18; TEMP 36.1–36.4; O2SAT 90–98; BMI 28.5; BMI 29.7
--- NOTE | 2024-06-14 10:22 | PRE.ANES_ITS ---
ASA Classification* ASA Classification ASA Classification: 3 Assessment & Plan Anesthesia* Anesthesia Assessment Anesthesia Assessment: Discussed sedation and/or anesthesia options, risks, benefits, and alternatives with patient/parents/legal guardian/POA. Questions invited. The patient/parents/legal guardian/POA seems to understand and agrees to proceed with anesthesia plan. Reviewed the physical assessment, medical history, allergy history and patient home medications list prior to surgery/procedure/anesthetic and documented any changes. Performed airway and anesthesia risk assessments. Anesthesia Type Anesthesia Type: General Anesthesia Focused Assessment* Airway Assessment Mouth opens: >3 cm Mallampati Score: II Focused Labs Anesthesia Preop lab: CBC WBC 7.6 K/mm3 (4.4-11.0) 06/12/24 09:16 RBC 5.47 M/mm3 (4.6-6.2) 06/12/24 09:16 Hgb 16.3 g/dL (13.0-16.5) 06/12/24 09:16 Hct 50.9 % (40-54) 06/12/24 09:16 Plt Count 187 K/mm3 (150-450) 06/12/24 09:16 CHEMISTRY Potassium 3.8 mmol/L (3.5-5.1) 06/12/24 09:16 Sodium 139 mmol/L (136-145) 06/12/24 09:16 Magnesium 2.1 mg/dL (1.6-2.6) 05/23/20 10:35 BUN 16 mg/dL (7-18) 06/12/24 09:16 Creatinine 0.97 mg/dL (0.70-1.30) 06/12/24 09:16 Glucose 145 mg/dL (74-106) H 06/12/24 09:16 POC Glucose 162 mg/dL (70-110) H 03/07/13 06:05 TSH 1.18 uIU/mL (0.358-3.74) 08/13/21 10:49 COAG PT 12.9 SECONDS (11.9-14.4) 03/06/13 22:40 Pre-Assessment Diagnosis/Proposed Procedure Planned Operative Procedure(s): (N/A) Cysto,TUR,Prostate,Olympus, Litholapaxy- Large Anesthesia History Anesthesia History - fitness manager: Anesthesia History - fitness manager Hx Hospitalization No 05/31/24 14:29 Any Problems With Anesthesia No 05/31/24 14:29 Cholinesterase deficiency No 05/31/24 14:29 You/Your Family Experience No 05/31/24 14:29 fever (hyperthermia) with Relationship Recent Exposure to Contagious Disease Does patient have nerve No 05/31/24 14:29 stimulator Patient instructed to have device shut off --Does patient have Pacemaker or ICD? When Was Last Pacemaker Check QUESTION #4 FULL TEXT: You/Your Family Experience fever (hyperthermia) with Anesthesia Last Oral Intake Last Oral intake: Last Oral Intake NPO since Meds taken in AM with sips of water? Meds patient instructed to take am of surgery PONV PONV - fitness manager: PONV - fitness manager Female Yes 05/31/24 14:29 HX of Motion Sickness No 05/31/24 14:29 HX of N/V After Surgery No 05/31/24 14:29 Non-Smoker Yes 05/31/24 14:29 Duration of Surgery greater Yes 05/31/24 14:29 than 60 minutes Number of Risk Factors 3 05/31/24 14:29 PONV Score Moderate Risk 05/31/24 14:29 Height & Weight Height & Weight: Anesthesia: Height & Weight Height 6 ft 1 in 09/21/23 11:28 Respiratory Assessment Respiratory Assessment - fitness manager: Respiratory Tract Infection Hx - fitness manager Hx Respiratory Tract Infection No 05/31/24 14:29 STOP Sleep Apnea STOP Sleep Apnea - fitness manager: STOP Sleep Apnea - fitness manager Hx Hypertension Yes: CONTROLLED WITH MED 05/31/24 14:29 Hx Sleep Apnea No 05/31/24 14:29 CPAP BIPAP Do you snore loudly (louder No 05/31/24 14:29 than talking or can be heard Do you often feel tired/ No 05/31/24 14:29 fatigued/ sleepy during daytime? Has anyone observed you stop No 05/31/24 14:29 breathing during sleep? STOP Results Negative 05/31/24 14:29 QUESTION #5 FULL TEXT : Do you snore loudly (louder than talking or can be heard through closed doors)? Tobacco Use History Tobacco Use History - fitness manager: Tobacco Use History - fitness manager Tobacco Use Smoking Status Former smoker 05/31/24 14:29 Hx Tobacco Use No 05/31/24 14:29 Years Smoking Packs Smoked per Day Smoking Cessation Date was Yes - quit smoking within 15 05/31/24 14:29 within the last 15 years years Hx Smoking Cessation Date 07/26/12 05/31/24 14:29 Hx Smoking Cessation Counseling Hematologic Medial History Hematologic Hx - fitness manager: Hematologic Medical Hx - utility inspector Hx of Blood Transfusion No 05/31/24 14:29 Hx of Transfusion in last 3 No 05/31/24 14:29 Months Date of Last Transfusion (if within last 3 months) Ever experience any problems No 05/31/24 14:29 with transfusion(s)? Specify any problems Hx of Preganancy in last 3 N/A 05/31/24 14:29 Months Nurse Filling Out Transfusion NBUCHER 05/31/24 14:29 & Questions: Date: 05/31/24 05/31/24 14:29 Time: 14:30 05/31/24 14:29 Patient unable to answer at this time (ie. confused, unrespo /Reproduction History /Reproductive History - fitness manager: /Reproductive Hx- fitness manager Hx Now Gestational Age (in weeks): EDC: Hx Hx Para Hx Section SAB Active Medications Active Medications: Current Medications Generic Name Dose Route Start Last Admin Trade Name Freq PRN Reason Stop Dose Admin Cefazolin Sodium 2 gm/ N/A 20 mls @ 400 mls/hr 06/14/24 11:40 IV 06/14/24 11:42 PREOP ONE Lactated Ringer's 1,000 mls @ 15 mls/hr 06/14/24 10:15 IV 06/19/24 23:34 .Q48H [facility] Protocol PFSH Medical History Wears glasses Prostate disease High cholesterol Diverticulosis Former smoker History of atrial fibrillation History of echocardiogram History of stress test Cardiology follow-up encounter Encounter for screening for malignant neoplasm of lung Frequent PVCs History of tobacco use Encounter for screening for malignant neoplasm of lung in former smoker who quit in past 15 years with 30 pack year history or greater Encounter for screening for malignant neoplasm of lung in current smoker with 30 pack year history or greater Premature atrial contraction Premature ventricular contraction Fatigue Lightheaded Essential hypertension Type 2 diabetes mellitus Bradycardia Tobacco abuse Atherosclerotic heart disease of [place] coronary artery without angina pectoris Hyperlipidemia Home Medications ?Medication ?Instructions ?Recorded ?Last Taken ?Type amlodipine 5 mg tablet 5 mg PO DAILY 01/25/19 06/13/24 History aspirin 81 mg tablet,delayed 81 mg PO DAILY 01/25/19 06/07/24 History release (Adult Low Dose Aspirin) lisinopril 5 mg tablet 5 mg PO DAILY 01/25/19 06/13/24 History empagliflozin 25 mg tablet 25 mg PO DAILY 07/11/19 06/13/24 History (Jardiance) hydrochlorothiazide 12.5 mg tablet 12.5 mg PO DAILY 09/07/23 06/13/24 History metformin 500 mg tablet 1,000 mg PO BID 09/07/23 06/13/24 History ezetimibe 10 mg tablet 10 mg PO DAILY #90 tabs 05/03/24 06/13/24 Rx pravastatin 40 mg tablet 40 mg PO QHS #90 TABLETS 05/03/24 06/13/24 Rx Allergy/AdvReac Type Severity Reaction Status Date / Time atorvastatin (From Lipitor) AdvReac Severe myalgias Verified 06/14/24 10:10 Iodinated Contrast Media AdvReac Severe Rash Verified 06/14/24 10:10 (Iodinated Contrast- Oral and IV Dye) rosuvastatin (From Crestor) AdvReac Severe myalgias Verified 06/14/24 10:10 Family History Mother Myocardial infarction, Onset Age: 55 Surgical History History of colonoscopy History of cardiac radiofrequency ablation History of coronary artery stent placement History of cardiac catheterization History of cardiac radiofrequency ablation (RFA) Presence of stent in coronary artery (~03/08/13) Postsurgical percutaneous transluminal coronary angioplasty (PTCA) status (~03/08/13) Social History Smoking Status: Former smoker quit date: 02/23/13 pack-years: 72 Tobacco: How many years used: 36 Electronic Cigarette Use: not used how long ago did patient quit smokin years second hand exposure: Yes quit status: quit date established details: occasional substance use type: does not use Review of Systems (Anesthesia) ROS Narrative System reviewed and no additional complaints, except as documented.
--- NOTE | 2024-06-14 10:58 | HP.PCM_ITS ---
HPI - General General Date of Admission: 06/14/24 Chief Complaint: bph HPI Narrative HEIDY DELEON, is a 63 M who presents plan for a TUrP remove urolift clips and laser stone. FORMERLY [facility], 1928–1983 Medical History Wears glasses Prostate disease High cholesterol Diverticulosis Former smoker History of atrial fibrillation History of echocardiogram History of stress test Cardiology follow-up encounter Encounter for screening for malignant neoplasm of lung Frequent PVCs History of tobacco use Encounter for screening for malignant neoplasm of lung in former smoker who quit in past 15 years with 30 pack year history or greater Encounter for screening for malignant neoplasm of lung in current smoker with 30 pack year history or greater Premature atrial contraction Premature ventricular contraction Fatigue Lightheaded Essential hypertension Type 2 diabetes mellitus Bradycardia Tobacco abuse Atherosclerotic heart disease of [place] coronary artery without angina pectoris Hyperlipidemia Home Medications ?Medication ?Instructions ?Recorded ?Last Taken ?Type amlodipine 5 mg tablet 5 mg PO DAILY 01/25/19 06/13/24 History aspirin 81 mg tablet,delayed 81 mg PO DAILY 01/25/19 06/07/24 History release (Adult Low Dose Aspirin) lisinopril 5 mg tablet 5 mg PO DAILY 01/25/19 06/13/24 History empagliflozin 25 mg tablet 25 mg PO DAILY 07/11/19 06/13/24 History (Jardiance) hydrochlorothiazide 12.5 mg tablet 12.5 mg PO DAILY 09/07/23 06/13/24 History metformin 500 mg tablet 1,000 mg PO BID 09/07/23 06/13/24 History ezetimibe 10 mg tablet 10 mg PO DAILY #90 tabs 05/03/24 06/13/24 Rx pravastatin 40 mg tablet 40 mg PO QHS #90 TABLETS 05/03/24 06/13/24 Rx Allergy/AdvReac Type Severity Reaction Status Date / Time atorvastatin (From Lipitor) AdvReac Severe myalgias Verified 06/14/24 10:10 Iodinated Contrast Media AdvReac Severe Rash Verified 06/14/24 10:10 (Iodinated Contrast- Oral and IV Dye) rosuvastatin (From Crestor) AdvReac Severe myalgias Verified 06/14/24 10:10 Family History Mother Myocardial infarction, Onset Age: 55 Surgical History History of colonoscopy History of cardiac radiofrequency ablation History of coronary artery stent placement History of cardiac catheterization History of cardiac radiofrequency ablation (RFA) Presence of stent in coronary artery (~03/08/13) Postsurgical percutaneous transluminal coronary angioplasty (PTCA) status (~03/08/13) Social History Smoking Status: Former smoker quit date: 02/23/13 pack-years: 72 Tobacco: How many years used: 36 Electronic Cigarette Use: not used how long ago did patient quit smokin years second hand exposure: Yes quit status: quit date established details: occasional substance use type: does not use Vital Signs Vital Signs Vital Signs: 06/14/24 10:11 06/14/24 10:11 Temperature 97.4 F L Temperature Source Temporal Pulse Rate 60 Respiratory Rate 16 Respiratory Pattern Normal Blood Pressure 140/73 H Blood Pressure Mean 95 Blood Pressure Source Monitor Blood Pressure Position Semi-Fowlers Blood Pressure Location Left Arm Pulse Ox 94 Oxygen Delivery Method Room Air Weight Weight: 98 kg Body Mass Index (BMI) 28.5 Results Lab / Micro Data 06/12/24 09:16 06/12/24 09:16
[2024-06-14 11:00] LABS: Bedside Glucose 122 mg/dL (74-106)
[2024-06-14] MEDS: Cefazolin 2 GM in Syringe IV (11:06)
--- NOTE | 2024-06-14 11:10 | DCINST_ITS ---
Discharge Instructions Diet Discharge Diet: No restrictions Activity Discharge Activity: Return to Normal Activity and May Not Drive (while taking narcotic pain medications.) Dressing / Incision Call your doctor if you observe: Fever of 101 or Higher Follow Up Care Please Follow Up With: Dane Vizcaino MD When: Call [phone] for an appointment Test Results: Test results from this visit will be discussed in further detail at your follow- up appointment, if applicable. Discharge Plan Admission Attending Provider: Dane Vizcaino Primary Care Provider: Pradeep Alvarado Instructions Print Language: Turkmen Discharge Orders/Prescriptions Prescriptions: No Action lisinopril 5 mg tablet 5 mg PO DAILY amlodipine 5 mg tablet 5 mg PO DAILY aspirin [Adult Low Dose Aspirin] 81 mg tablet,delayed release (DR/EC) 81 mg PO DAILY metformin 500 mg tablet 1,000 mg PO BID Jardiance 25 mg tablet 25 mg PO DAILY hydrochlorothiazide 12.5 mg tablet 12.5 mg PO DAILY Patient Comments: TAKE 1 TABLET BY MOUTH ONCE DAILY ezetimibe 10 mg tablet 10 mg PO DAILY Qty: 90 3RF pravastatin 40 mg tablet 40 mg PO QHS Qty: 90 3RF Referrals / Follow Up: Pradeep Alvarado MD [Primary Care Provider] - Disposition Disposition (needs filled in before D/C Order can be placed): Home, Self Care
--- NOTE | 2024-06-14 11:40 | PROS_PTH ---
PATIENT: HEIDY DELEON LOC: [facility] U#:[id number] AGE/SX: 63/M ROOM: [facility]312 RE06/14/[address]: Dr. Dane Vizcaino MD : 1960 BED: 1 DIS: 06/15/2024 SPEC #: [id number] RECD: 06/14/24 14:01 STATUS: HAYLIE ABDI #: [id number] MARYBETH: 06/14/24 11:[address]: Dane Vizcaino DEPT: SURGICAL PATHOLOGY RECD BY: Korin Lopes ENTERED: 06/15/24 08:09 SP TYPE: TURP OTHR DR: Dr. Pradeep Alvarado MD Tissues: Prostate, NOS Procedures: Surgery Specimen Level IV HEADER OPERATION: Transurethral resection, prostate PRE-OP DIAGNOSIS: Benign prostatic hyperplasia TISSUE SUBMITTED: Prostate tissue MICROSCOPIC DIAGNOSIS Prostate, transurethral resection: Benign prostatic hyperplasia, glandular and stromal type. Chronic inflammation. Fragments of stone (gross only). 06/16/2024 MICROSCOPIC DESCRIPTION Slides are reviewed. GROSS DESCRIPTION Received is one container labeled with the patient's name and designated prostate tissue. The specimen consists of multiple irregular fragments of pink-cain, rubbery, soft tissue that in aggregate weigh 16.0 gm and measure in aggregate 6.0 x 5.0 x 2.0 cm. A few fragments of brown stones are also noted measuring 0.2 to 0.4cm in greatest dimension. A few metallic clips are also noted in the specimen. Railroad Baggage Porter sections are submitted in ten cassettes. 06/15/2024 TC:5 CPT: 81618
--- NOTE | 2024-06-14 12:38 | PCM.OPRPT ---
Operative Report (Standard) Operative Information Surgery/Procedure Performed: Transurethral resection of prostate and laser of bladder stones and removal of UroLift clips Surgeon: Dane Vizcaino Date of Procedure: 06/14/24 Procedure Start Time: : Procedure Stop Time: 12:39 Pre-Operative Diagnosis: BPH with obstruction, bladder stones, UroLift clips Post-Operative Diagnosis: Same Select all DRAINS/GRAFTS/IMPLANTS that apply: Drains Drain details: Three-way Earl catheter Type of Anesthesia: General Estimated Blood Loss: 10 cc mini Specimen collected: Yes Description of specimen(s) removed: Prostate chips bladder stones UroLift clips Description of surgery: Patient was taken back to the operating room at this with duction of anesthesia he was placed in dorsolithotomy position, the penis and testicles were prepped and draped in usual sterile fashion went in the bladder with a 21 [place] rigid cystourethroscope inspected bladder with a both 30 and 70 degree lens identified a stone that was stuck to UroLift clip on the lateral side of the bladder he had a UroLift procedure many years ago looks like the clip had migrated into the bladder I then used a 900 ?m laser fiber laser the stones off the clip and then lasered the bottom of the clip to free these up the clip was then removed from the bladder as well as the bladder stones were also removed. The stones were about 2 cm in size and total. I then switched over to the resectoscope and then I removed UroLift clip on the left side and the right side all in its entirety these were removed and then I switched over the resectoscope continuous-flow and then proceeded with the resection of the prostate work my way from the bladder neck all the way back to the verumontanum resected the right lobe of the prostate which was quite large and then resect the left of the prostate then very carefully resected able to apical tissue all the chips were Ellik out of the bladder I obtained hemostasis with electrocautery throughout the bladder I then did a flow test had a wide open flow sphincter looked intact and then I put a 22 [place] three-way catheter into the bladder on continuous irrigation and he was taken back to the PACU in good condition and will do a voiding trial tomorrow morning. 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
--- NOTE | 2024-06-14 12:49 | PCM.POST.ANE ---
Anesthesia: Postop Eval I Current Vital Signs Temperature: 97.4 F Pulse Rate: 71 Blood Pressure: 141/109 Respiratory Rate: 14 Pulse Ox: 92 Oxygen Delivery Method: Room Air Assessment Airway patent: Yes Spontaneous unlabored respirations: Yes Mental status: Awake nausea: No Vomiting: No Anesthesia Complication: No Fluid Hydration Crystalloid volume administer (ml): 800 Total IV fluid infused: 800 Progress Note Anesthesia document: Postop Eval 1 completed: Yes
[2024-06-14] MEDS: Ketorolac 15 MG/ML Vial IV ×2 (13:22→18:47)
--- NOTE | 2024-06-14 13:42 | POSTOPAN2_ITS ---
Anesthesia Postop Eval I Sum Postop Eval Completion status Anesthesia document: Postop Eval 1 completed: Yes Anesthesia Postop Eval I Summary Anesthesia Postop Eval I Summary: Anesthesia Postop Eval I: Assessment Summary Airway patent Yes 06/14/24 12:50 CONTINUOUS IMPROVEMENT BLACK BELT.HBARR Spontaneous unlabored Yes 06/14/24 12:50 CONTINUOUS IMPROVEMENT BLACK BELT.HBARR respirations Mental status Awake 06/14/24 12:50 CONTINUOUS IMPROVEMENT BLACK BELT.HBARR nausea No 06/14/24 12:50 CONTINUOUS IMPROVEMENT BLACK BELT.HBARR Vomiting No 06/14/24 12:50 CONTINUOUS IMPROVEMENT BLACK BELT.HBARR Anesthesia Postop Eval I: Fluid Summary Crystalloid volume administer 800 06/14/24 12:50 CONTINUOUS IMPROVEMENT BLACK BELT.HBARR (ml) Colloids volume administered ( ml) Blood Product volume administered (ml) Total IV fluid infused 800 06/14/24 12:50 CONTINUOUS IMPROVEMENT BLACK BELT.HBARR Anesthesia Postop Eval I: Summary Notes Anesthesia Complication No 06/14/24 12:50 CONTINUOUS IMPROVEMENT BLACK BELT.HBARR Anesthesia Complication Comment: Post-operative progress note Anesthesia: Postop Eval II Evaluation Mental status: Awake Pain Level: 0 nausea: No Vomiting: No
--- NOTE | 2024-06-14 13:42 | PCM.POSTANE2 ---
Anesthesia Postop Eval I Sum Postop Eval Completion status Anesthesia document: Postop Eval 1 completed: Yes Anesthesia Postop Eval I Summary Anesthesia Postop Eval I Summary: Anesthesia Postop Eval I: Assessment Summary Airway patent Yes 06/14/24 12:50 COMPOUNDING AND FINISHING SUPERVISOR.HBARR Spontaneous unlabored Yes 06/14/24 12:50 COMPOUNDING AND FINISHING SUPERVISOR.HBARR respirations Mental status Awake 06/14/24 12:50 COMPOUNDING AND FINISHING SUPERVISOR.HBARR nausea No 06/14/24 12:50 COMPOUNDING AND FINISHING SUPERVISOR.HBARR Vomiting No 06/14/24 12:50 COMPOUNDING AND FINISHING SUPERVISOR.HBARR Anesthesia Postop Eval I: Fluid Summary Crystalloid volume administer 800 06/14/24 12:50 COMPOUNDING AND FINISHING SUPERVISOR.HBARR (ml) Colloids volume administered ( ml) Blood Product volume administered (ml) Total IV fluid infused 800 06/14/24 12:50 COMPOUNDING AND FINISHING SUPERVISOR.HBARR Anesthesia Postop Eval I: Summary Notes Anesthesia Complication No 06/14/24 12:50 COMPOUNDING AND FINISHING SUPERVISOR.HBARR Anesthesia Complication Comment: Post-operative progress note Anesthesia: Postop Eval II Evaluation Mental status: Awake Pain Level: 0 nausea: No Vomiting: No
[2024-06-14] MEDS: oxyCODONE 5 MG Tablet PO ×2 (16:21→22:33)
[2024-06-14] MEDS: Acetaminophen 325 MG Tablet 650 MG PO ×2 (16:21→22:33)
[2024-06-14] MEDS: metFORMIN HCl 1,000 MG Tablet 1000 MG PO (17:22)
[2024-06-14] MEDS: 0.9% Saline Lock 10 ML Syringe IV (18:47)
[2024-06-14] MEDS: Pravastatin 40 MG Tablet PO (20:26)
[2024-06-14] MEDS: Ciprofloxacin 500 MG Tablet PO (20:26)
[2024-06-15] MEDS: BENZOCAINE/MENTHOL 1 LOZENGE MUCOUS MEM (00:04)
[2024-06-15] MEDS: Ketorolac 15 MG/ML Vial IV ×2 (00:05→06:30)
[2024-06-15 00:16] VITALS: BP 111/64; PULSE 55; RESP 16; TEMP 36.4; O2SAT 98
[2024-06-15 06:16] VITALS: BP 119/70; PULSE 52; RESP 16; TEMP 36.6; O2SAT 98
[2024-06-15] MEDS: oxyCODONE 5 MG Tablet PO (06:30)
[2024-06-15] MEDS: metFORMIN HCl 1,000 MG Tablet 1000 MG PO (07:33)
[2024-06-15] MEDS: Ciprofloxacin 500 MG Tablet PO (07:33)
[2024-06-15] MEDS: Empagliflozin 25 MG Tablet PO (07:34)
[2024-06-15] MEDS: Ezetimibe 10 MG Tablet PO (07:34)
[2024-06-15] MEDS: amLODIPine 5 MG Tablet PO (07:34)
[2024-06-15] MEDS: hydroCHLOROthiazide 12.5mg 12.5 MG PO (07:34)
[2024-06-15] MEDS: Lisinopril 5 MG Tablet PO (07:35)
[2024-06-15] MEDS: FLU VACCINE **HIGH DOSE** TV 24-25 180 MCG/0.5 ML SYRINGE IM (07:36)
--- NOTE | 2024-06-15 07:50 | PCM.PN.GU ---
Subjective Subjective doing well home after voids Objective Data Objective Data Vital Signs: Vital Signs Temp Pulse Resp BP Pulse Ox O2 Del Method O2 Flow Rate 97.8 F 52 L 16 119/70 98 Room Air 2 06/15/24 06:16 06/15/24 06:16 06/15/24 06:16 06/15/24 06:16 06/15/24 06:16 06/15/24 06:16 06/14/24 14:45 Oxygen Flow Rate (L/min) 2 Oxygen Delivery Method Room Air Weight: 102.058 kg Body Mass Index (BMI) 29.7 Intake & Output: Intake and Output for Last 24 Hours 06/13/24 06/14/24 06/15/24 23:59 23:59 23:59 Intake Total 1020 / 1020 Output Total 1200 / 1200 1650 / 1650 Balance -180 / -180 -1650 / -1650 Lab / Micro Data 06/12/24 09:16 06/12/24 09:16 Labs: Laboratory Results - last 24 hr 06/14/24 10:22: POC Glucose 122 H
[2024-06-15 08:36] VITALS: BP 114/65; PULSE 60; RESP 16; TEMP 36.5; O2SAT 95
== END 2024-06-15 11:24 | disposition home or self-care (01) ==
LOC: SDC 16:03 → MS3 16:03
PROVIDERS: Anesthesiology; Admitting Provider Urology; PCP Family Medicine; Referring Provider Urology; Visit Provider Urology
PROC: (CPT 52601; principal; 2024-06-14 11:30)
DX: N40.1 Benign prostatic hyperplasia with lower urinary tract symptoms (principal); I48.91 Unspecified atrial fibrillation; E11.9 Type 2 diabetes mellitus without complications; Z87.891 Personal history of nicotine dependence; I25.10 Atherosclerotic heart disease of native coronary artery without angina pectoris; N21.0 Calculus in bladder; Z79.84 Long term (current) use of oral hypoglycemic drugs; I10 Essential (primary) hypertension; E78.00 Pure hypercholesterolemia, unspecified; Z23 Encounter for immunization; N13.8 Other obstructive and reflux uropathy; Z79.899 Other long term (current) drug therapy; Z79.82 Long term (current) use of aspirin; Z46.6 Encounter for fitting and adjustment of urinary device
CPT/HCPCS: 52601; 00914; 36415; 80048; 82962; 83036; 85027; 88305; 90662; 93005; 96374; 96376; 99221; J7120; A4216; G0378; J2405

== ENCOUNTER → 2024-09-26 | Outpatient (CLI) | payer MEDICARE, SELFPAY ==
--- NOTE | 2024-09-26 12:36 | CT_ITS ---
PROCEDURE: LOW DOSE CT LUNG SCREENING REASON FOR EXAM: 80 pack-year history of smoker. Former smoker. TECHNIQUE: Low Dose CT Lung Screening without contrast COMPARISON: Comparison is made with prior study dated September 21, 2023. FINDINGS: PULMONARY NODULES: (Only nodules >6mm are reported) Nodules described below are on series 1 unless otherwise specified. Pulmonary Nodules: No concerning pulmonary nodules. Hardware:None Lymph Nodes:No mediastinal hilar or axillary lymphadenopathy. Heart and Vasculature:Normal heart size. No pericardial effusion.Thoracic aorta and pulmonary arteries have normal contours; noncontrast technique limits evaluation. Coronary Artery Calcifications: Present Lungs and Airways: Stable 4 mm noncalcified nodule in the anterior aspect of the right lower lobe abutting the right minor fissure as seen on axial image number 117 mild increased markings at the lung bases suggestive of scarring. Pleura:No pleural effusion. No pneumothorax. Upper Abdomen:Visualized portions of the upper abdominal viscera are unremarkable. Bones:Degenerative changes of the thoracic spine. CT/Low Dose CT Lung Screening IMPRESSION: 1. BASED ON THE ACR LUNG RADS FOR THE MOST SUSPICIOUS NODULE (IF ANY) DESCRIBE D IN THIS REPORT, THE OVERALL LUNG RADS SCORE IS 2.2 - BENIGN (BASED ON IMAGING FEATURES OR INDOLENT BEHAVIOR). RECOMMEND 12-MON TH SCREENING LDCT.. 2. SMOKING CESSATION COUNSELING IS RECOMMENDED IF THE PATIENT IS STILL SMOKING . 3. OTHER SIGNIFICANT FINDINGSNone. One or more dose reduction techniques were used (e.g., Automated exposure contr ol, adjustment of the mA and/or kV according to patient size, use of iterative reconstruction technique). The following information is provided for reference:Lung-RADS 2021 Assessment C ategories. Additional information involving Lung-RADS is available at www.acr.org. 0-INCOMPLETE 1-NEGATIVE:No nodules or definitely benign nodules. Complete, central, popcorn , or centric ring calcifications OR fat containing 2-BENIGN APPEARANCE (based on imaging features or indolent behavior). Juxtaple ural nodule: < 10mm AND solid; smooth margins; oval, entiform, or triangular shape Solid nodule: <6mm at baseline or new< 4mm Part solid Nodule: < 6mm total mean diameter at baseline Nonsolid nodule:(GGN) < 30mm OR >=30mm stable or slowly growing Airway nodule, subsegmental at baseline, new, or stable Category 3 nodule stabl e or decreased in size at 6-month follow-up CT or Category 3 or 4A nodules that resolve on follow-up OR category 4B findings prov en to be benign following diagnotic work up. 3 - Probably Benign (Based on imaging features or behavior) Solid Nodule: >= 6 to <8mm at baseline OR new 4 to <6mm Part-solid nodule: >= 6mm toal mean diam. with solid component <6mm at baseline OR new < 6mm total mean diam. Non-solid nodule: GGN >= 30mm at baseline or new Atypical pulmonary cyst: Growing cystic component (mean diam.) of thick-walled cyst Category 4A nodule stable or decreased in size at 3-month follow-up CT (excl.ai rway). 4A - Suspicious Solid nodule: >=8 to < 15mm at baseline OR growing < 8mm OR new 6 to < 8mm Part solid nodule: >= 6mm total mean diam. w/ solid component >=6mm to < 8mm at baseline OR new or growing < 4mm solid component Airway nodule, segmental or more proximal at baseline or new Atypical pulmonary cyst: Thick-walled OR multilocular at baseline OR becomes mu ltilocular 4B - Very Suspicious Airway nodule, segmental or more proximal, and stable or growing Solid nodule: >= 15mm at baseline OR new or growing >= 8mm Part solid nodule: Solid component >= 8mm OR new or growing >= 4mm solid compon ent Atypical pulmonary cyst: Thick-walled with growing wall thickness/nodularity OR Growing multilocular (mean diam.) OR Multilocular with increased loculation or new/increased opacity Slow-growing solid or part solid nodule w/ growth over multiple screening exams 4X - Very Suspicious Category 3 or 4 nodules with additional features that increase the suspicion fo r lung cancer. S - Clinically Significant or potentially significant findings (non-lung cancer ) Reading Location: [facility]
== END | disposition home or self-care (01) ==
LOC: CT 12:36
PROVIDERS: PCP Family Medicine; Referring Provider Nurse Practitioner Family; Visit Provider Nurse Practitioner Family
DX: Z12.2 Encounter for screening for malignant neoplasm of respiratory organs (principal); Z87.891 Personal history of nicotine dependence
CPT/HCPCS: 71271

== ENCOUNTER → 2024-11-02 | Outpatient (CLI) | payer MEDICARE, SELFPAY ==
[2024-11-02 13:09] LABS: Absolute Lymphocyte Count 2.58 X10^3/uL (0.83-4.51); Absolute Neutrophil Count 3.9 X10^3/uL (2.0-7.7); Basophil# 0.07 X10^3/uL; Basophil% 0.9 % (0-1); Eosinophil# 0.24 X10^3/uL; Eosinophils% 3.2 % (0-5); Hemoglobin 17.7 g/dL (13.0-16.5); Lymphocyte # 2.58 X10^3/ul (0.83-4.51); Lymphocyte % 34.2 % (19-41); Mean Corp Hgb Conc 32.8 g/dL (32-36); Mean Corpuscular Hgb 29.4 pg (27.0-32.0); Mean Corpuscular Volume 89.6 fL (80-94); Mean Platelet Vol. 10.3 fl (6.2-12.0); Monocyte# 0.72 X10^3/uL; Monocyte% 9.5 % (0-10); NRBC Flagged by Analyzer 0 % (0-5); Neutrophil # 3.92 X10^3/uL (2.7-7.7); Neutrophil % 51.9 % (47-70); Platelet Count 185 K/mm3 (150-450); RBC Distribution Width CV 13.7 % (11.6-14.6); Red Blood Count 6.03 M/mm3 (4.6-6.2); White Blood Count 7.6 K/mm3 (4.4-11.0)
[2024-11-02 14:34] LABS: Magnesium 2.4 mg/dL (1.5-2.2); Pro- Brain NATRIURETIC PEPTIDE 1141 pg/mL (<=900)
[2024-11-02 14:39] LABS: ALB/GLOB Ratio 1.5 RATIO (0.9-2.4); AST(SGOT) 16 U/L (<=37); Alanine Aminotransfer ALT/SGPT 17 U/L (<=46); Albumin, Serum 4.4 g/dL (3.4-4.8); Alkaline Phosphatase 75 U/L (40-129); Anion Gap 12 (5-15); BUN 16 mg/dL (4-19); BUN/Creat Ratio 15.2 RATIO (10-20); Calcium,Total 9.7 mg/dL (7.6-11.0); Chloride 99 mmol/L (98-108); Creatinine, Serum 1.03 mg/dL (0.70-1.20); EST Glomerular Filtration Rate 80 (>60); Globulin 2.9 g/dL (2.2-4.2); Glucose 171 mg/dL (70-99); Potassium 4.4 mmol/L (3.3-5.1); Protein, Total 7.3 g/dL (5.9-8.4); Sodium Level 138 mmol/L (133-145); Total Bilirubin 0.62 mg/dL (0.00-1.30)
== END | disposition home or self-care (01) ==
LOC: LAB 12:38
PROVIDERS: PCP Family Medicine; Referring Provider Nurse Practitioner Family; Visit Provider Nurse Practitioner Family
DX: I49.3 Ventricular premature depolarization (principal); I48.0 Paroxysmal atrial fibrillation; E11.9 Type 2 diabetes mellitus without complications; Z79.4 Long term (current) use of insulin; Z87.891 Personal history of nicotine dependence; R53.83 Other fatigue; R42 Dizziness and giddiness; I10 Essential (primary) hypertension; Z95.5 Presence of coronary angioplasty implant and graft; I25.10 Atherosclerotic heart disease of native coronary artery without angina pectoris; E78.5 Hyperlipidemia, unspecified; R06.09 Other forms of dyspnea
CPT/HCPCS: 36415; 80053; 83735; 83880; 84439; 84443; 85025

== ENCOUNTER 2024-11-27 10:02 | Emergency (ER) | payer MEDICARE, SELFPAY ==
[2024-11-27] VITALS (10 sets, daily range): BP systolic 81–141; BP diastolic 51–94; PULSE 45–82; RESP 11–18; TEMP 35.8–36.8; O2SAT 94–99; BMI 29.0
--- NOTE | 2024-11-27 10:31 | EX.ED.DYSGE1 ---
HPI History of Present Illness Chief Complaint: Palpitations Detail of Chief Complaint: Sent to ER from cardiology office. Narrative Narrative: Patient was seen by nurse practitioner Taras awad on November 02. This was for an outpatient cardiovascular follow-up. He has a history of coronary disease, PCI, PACs/PVCs, sinus bradycardia, hyperlipidemia and hypertension. He is status post ablation for symptomatic PVCs that were 25% of his recorded beats. This was done at [facility] by Dr. Puri. He was seen on the because of fast heart rate. He presented had a twelve-lead EKG that revealed atrial fibrillation with a rate of 118. He had no prior history of atrial fibrillation. He denied chest pain, arm pain, jaw pain or neck discomfort. There is no radiation of the pain to his back either. He denied lightheadedness, generalized weakness or diaphoresis. Dr. Rodriguez contacted him yesterday and was told he is in a sinus rhythm. He had him come to the office for EKG. EKG revealed atrial flutter 4-1 block. When attempts were made to contact staff no one was available because of acuity in the ED. I did speak with Dr. Rodriguez. He requested patient be cardioverted. He is on anticoagulant. Prior similar symptoms: Yes Recent Illness/Hospitalization: Yes [facility] Medical History Wears glasses Prostate disease High cholesterol Diverticulosis Former smoker History of atrial fibrillation History of echocardiogram History of stress test Cardiology follow-up encounter Encounter for screening for malignant neoplasm of lung Frequent PVCs History of tobacco use Encounter for screening for malignant neoplasm of lung in former smoker who quit in past 15 years with 30 pack year history or greater Encounter for screening for malignant neoplasm of lung in current smoker with 30 pack year history or greater Premature atrial contraction Premature ventricular contraction Fatigue Lightheaded Essential hypertension Type 2 diabetes mellitus Bradycardia Tobacco abuse Atherosclerotic heart disease of [place] coronary artery without angina pectoris Hyperlipidemia Home Medications ?Medication ?Instructions ?Recorded ?Last Taken ?Type aspirin 81 mg tablet,delayed 81 mg PO DAILY 01/25/19 11/27/24 History release (Adult Low Dose Aspirin) lisinopril 5 mg tablet 5 mg PO DAILY 01/25/19 11/27/24 History metformin 500 mg tablet 1,000 mg PO BID 09/07/23 11/27/24 History ezetimibe 10 mg tablet 10 mg PO DAILY #90 tabs 05/03/24 11/26/24 Rx pravastatin 40 mg tablet 40 mg PO QHS #90 TABLETS 05/03/24 11/26/24 Rx empagliflozin 25 mg tablet 25 mg PO DAILY #90 tabs 10/03/24 11/27/24 Rx (Jardiance) apixaban 5 mg tablet (Eliquis) 5 mg PO BID #60 tabs 11/02/24 11/27/24 Rx metoprolol tartrate 25 mg tablet 25 mg PO Q12H 11/27/24 11/27/24 History Allergy/AdvReac Type Severity Reaction Status Date / Time atorvastatin (From Lipitor) AdvReac Severe myalgias Verified 11/27/24 10:06 Iodinated Contrast Media AdvReac Severe Rash Verified 11/27/24 10:06 (Iodinated Contrast- Oral and IV Dye) rosuvastatin (From Crestor) AdvReac Severe myalgias Verified 11/27/24 10:06 Family History Mother Myocardial infarction, Onset Age: 55 Surgical History H/O transurethral resection of prostate History of colonoscopy History of cardiac radiofrequency ablation History of coronary artery stent placement History of cardiac catheterization History of cardiac radiofrequency ablation (RFA) Presence of stent in coronary artery (~03/08/13) Postsurgical percutaneous transluminal coronary angioplasty (PTCA) status (~03/08/13) Social History Smoking Status: Former smoker quit date: 02/23/13 pack-years: 72 Tobacco: How many years used: 36 Electronic Cigarette Use: not used how long ago did patient quit smokin second hand exposure: Yes alcohol intake: current alcohol intake frequency: holidays/special occasions only substance use type: does not use caffeine: Yes Type: coffee Number of servings: 2 ROS ROS ED Constitutional Constitutional ED: Denies chills or fever(s) Eyes Eyes: Denies blurry vision or change in vision ENT ENT ED: Denies ear pain, rhinorrhea or sore throat Cardiovascular Cardiovascular: Reports palpitations; Denies chest pain, orthopnea, paroxysmal nocturnal dyspnea or racing heartbeat Respiratory/Chest Respiratory/Chest: Reports other Details: Patient sleeps with 2 pillows at night for comfort. ; Denies dyspnea, dyspnea on exertion, orthopnea or paroxysmal nocturnal dyspnea Gastrointestinal Gastrointestinal: Denies abdominal pain, nausea or vomiting Neurologic Neurologic: Reports headache(s) Psychiatric Psychiatric: Denies anxiety or depression Endocrine Endocrinology: Denies cold intolerance or heat intolerance Hematologic/Lymphatic Hematologic/Lymphatic: Reports systems reviewed and no addt'l complaints, except as documented EXAM Physical Exam Const Vital Signs: 11/27/24 10:04 11/27/24 10:29 11/27/24 11:04 Temperature 96.4 F L Temperature Source Temporal Pulse Rate 79 82 Pulse Rate [1 (Initial Baseline)] Pulse Rate [2] Respiratory Rate 16 18 Respiratory Rate [1 (Initial Baseline)] Respiratory Rate [2] Respiratory Effort Normal Blood Pressure 141/94 H 118/51 L Blood Pressure [1 (Initial Baseline)] Blood Pressure [2] Blood Pressure Mean 109 73 Baseline BP Pulse Ox 94 98 Oxygen Delivery Method Room Air Oxygen Delivery Method [1 (Initial Baseline)] Oxygen Delivery Method [2] Oxygen Flow Rate (L/min) EtCo2 (Normal 35-45 , high quality CPR 10-20 & ROSC>/=40mmHg EtCo2 (Normal 35-45 , high quality CPR 10-20 & ROSC>/=40mmHg [1 (Initial Baseline)] EtCo2 (Normal 35-45 , high quality CPR 10-20 & ROSC>/=40mmHg [2] 11/27/24 11:41 11/27/24 11:42 11/27/24 11:43 Temperature 98.3 F Temperature Source Pulse Rate 81 Pulse Rate [1 (Initial Baseline)] 80 Pulse Rate [2] 45 L Respiratory Rate 18 Respiratory Rate [1 (Initial Baseline)] 16 Respiratory Rate [2] 13 Respiratory Effort Blood Pressure 112/82 H Blood Pressure [1 (Initial Baseline)] 112/82 H Blood Pressure [2] 105/56 L Blood Pressure Mean Baseline BP 112/82 Pulse Ox 96 Oxygen Delivery Method Nasal Cannula Oxygen Delivery Method [1 (Initial Baseline)] Room Air Oxygen Delivery Method [2] Room Air Oxygen Flow Rate (L/min) 2 EtCo2 (Normal 35-45 , high quality CPR 10-20 & ROSC>/=40mmHg 38 36 EtCo2 (Normal 35-45 , high quality CPR 10-20 & ROSC>/=40mmHg [1 (Initial Baseline)] 24 EtCo2 (Normal 35-45 , high quality CPR 10-20 & ROSC>/=40mmHg [2] 26 11/27/24 11:48 11/27/24 11:53 11/27/24 11:58 Temperature Temperature Source Pulse Rate 46 L 46 L 48 L Pulse Rate [1 (Initial Baseline)] Pulse Rate [2] Respiratory Rate 13 14 16 Respiratory Rate [1 (Initial Baseline)] Respiratory Rate [2] Respiratory Effort Blood Pressure 100/66 96/76 91/66 Blood Pressure [1 (Initial Baseline)] Blood Pressure [2] Blood Pressure Mean Baseline BP Pulse Ox 97 98 98 Oxygen Delivery Method Room Air Room Air Room Air Oxygen Delivery Method [1 (Initial Baseline)] Oxygen Delivery Method [2] Oxygen Flow Rate (L/min) EtCo2 (Normal 35-45 , high quality CPR 10-20 & ROSC>/=40mmHg 33 27 28 EtCo2 (Normal 35-45 , high quality CPR 10-20 & ROSC>/=40mmHg [1 (Initial Baseline)] EtCo2 (Normal 35-45 , high quality CPR 10-20 & ROSC>/=40mmHg [2] 11/27/24 12:00 11/27/24 12:09 11/27/24 12:09 Temperature Temperature Source Pulse Rate 48 L 49 L 47 L Pulse Rate [1 (Initial Baseline)] Pulse Rate [2] Respiratory Rate 16 11 L Respiratory Rate [1 (Initial Baseline)] Respiratory Rate [2] Respiratory Effort Blood Pressure 93/71 81/67 L 91/70 Blood Pressure [1 (Initial Baseline)] Blood Pressure [2] Blood Pressure Mean 78 71 77 Baseline BP Pulse Ox 98 97 Oxygen Delivery Method Room Air Room Air Oxygen Delivery Method [1 (Initial Baseline)] Oxygen Delivery Method [2] Oxygen Flow Rate (L/min) EtCo2 (Normal 35-45 , high quality CPR 10-20 & ROSC>/=40mmHg EtCo2 (Normal 35-45 , high quality CPR 10-20 & ROSC>/=40mmHg [1 (Initial Baseline)] EtCo2 (Normal 35-45 , high quality CPR 10-20 & ROSC>/=40mmHg [2] Positive well nourished and well developed General Appearance ED: well developed and NAD; Negative for pallor HEENT Reports moist mucous membranes HEENT Narrative: HEENT is unremarkable Eyes PERRL and EOMs intact bilaterally General Eye ED: Negative for pale conjunctiva or scleral icterus Neck no lymphadenopathy, supple and no JVD Chest Wall inspection of chest normal and palpation of chest normal Resp normal respiratory effort and clear to auscultation bilaterally Cardio regular rate, regular rhythm, S1 normal heart sound, S2 normal heart sound and no murmurs GI normal to inspection, nondistended, normoactive bowel sounds, non-tender and no masses; Negative for hepatosplenomegaly Extremity normal to inspection General Extremety ED: Negative for edema or tenderness General Extremity: Negative for edema Neuro oriented x3 and CN's II-XII intact bilaterally Sensorium / Orientation: alert Psych mental status grossly normal Skin no rashes or lesions noted, no wounds and skin turgor normal General Skin Exam: elasticity normal; Negative for jaundice or pallor MDM MDM MDM Narrative Medical decision making narrative: Patient in atrial flutter for to 1 block. Case discussed with RT use. Patient be cardioverted. Since he had short-lived rates 1 hour prior to presentation will wait an additional hour. Will premedicate with Zofran and use propofol for sedation. Patient was explained risk benefits of medication and reason to wait. He and his asked several questions which were answered to their satisfaction. They were made aware that I have spoke with . Using this is the plan. EKG Initial EKG: Attestation: I personally reviewed and interpreted this EKG as follows: Interpretation: Atrial Flutter (Rate is 80 with a 4-1 block. QRS complexes 100 ms. QT is 372 ms. [place] is normal.) Follow-up EKG: Attestation: I personally reviewed and interpreted this EKG as follows: Interpretation: Sinus Bradycardia (Rate is 48. GA interval is 202 ms. QRS duration 108 ms. QT is 450. [place] is normal) Management Discussion w/another healthcare provider: Jack Setter (Dr. Rodriguez. Agrees with cardioversion.) Treatment and Re-Evaluation :: Nurse informed me at 1209 that pressure is low. Will order 1 L of normal saline and observe. Reassessed at 1301. Heart rate is now 55. Plan is metoprolol 3 times a day if heart rate is above 50 and blood pressure is greater than 100. Otherwise, metoprolol twice a day. This was based on discussion with Dr. Rodriguez his lapidary apprentice. Procedures Procedural Sedation 1 (Initial Baseline): Consent Signed: Yes Any Problems With Anesthesia: No You/Your family experience fever (hyperthermia) w/anesthesia: No Sedation medication: Propofol Dose: 60 (Milligrams) Route: IV Total Moderate Sedation Units: 4 (Minutes) Maliampati Score: Class I ASA Classification: E and II Comment:: Timeout was called. Patient received 60 mg profile IV push. Once desired effect was achieved he was successfully cardioverted with 200 J. Monitor reveals a sinus bradycardia rate of 44. Complexes narrow. Will obtain twelve-lead EKG. Will contact Dr. Islas. He is presently on metoprolol 25 mg 4 times daily. He recommended 3 times daily. Will see if he would like that decreased to twice daily. Patient is on apixaban. Discharge Plan Triage Chief Complaint: Palpitations ED Provider: Tan Shultz Dx/Rx/DC Orders Clinical Impression: Atypical atrial flutter, Hyperlipidemia, Presence of stent in coronary artery, Type 2 diabetes mellitus, Essential hypertension, Sinus bradycardia on ECG, Current use of anticoagulant therapy Instructions: ED Cardioversion, Electrical Prescriptions: No Action lisinopril 5 mg tablet 5 mg PO DAILY aspirin [Adult Low Dose Aspirin] 81 mg tablet,delayed release (DR/EC) 81 mg PO DAILY metformin 500 mg tablet 1,000 mg PO BID Jardiance 25 mg tablet 25 mg PO DAILY Qty: 90 3RF metoprolol tartrate 25 mg tablet 25 mg PO Q12H ezetimibe 10 mg tablet 10 mg PO DAILY Qty: 90 3RF pravastatin 40 mg tablet 40 mg PO QHS Qty: 90 3RF Eliquis 5 mg tablet 5 mg PO BID Qty: 60 11RF Primary Care Provider: Pradeep Alvarado Referrals: Russ Rodriguez MD [Med Staff - Active Staff] - 1 Week Pradeep Alvarado MD [Primary Care Provider] - Activity Restrictions/Additional Instructions: 1. If blood pressures greater than 100 metoprolol 3 times a day 2. If blood pressure is less than 100 metoprolol twice a day. Print Language: Malay Disposition Disposition: Home, Self Care
[2024-11-27] MEDS: Propofol 200 MG/20 ML Vial IV BOLUS (11:34)
[2024-11-27] MEDS: Ondansetron 4 MG/2 ML Vial IV (11:34)
--- NOTE | 2024-11-27 11:47 | EKG12_ITS ---
Test Reason : SOB Blood Pressure : */* mmHG Vent. Rate : 80 BPM Atrial Rate : 320 BPM P-R Int : * ms QRS Dur : 100 ms QT Int : 372 ms P-R-T Axes : 1 -17 -9 degrees QTcB Int : 429 ms Atrial flutter with 4:1 A-V conduction Cannot rule out Inferior infarct , age undetermined Abnormal ECG Confirmed by Russ Rodriguez ([id number]), visual effects editor FIORDALIZA SHORT ([id number]) on 12/01/2024 1:12:05 PM Referred By: ANTELMO/ANIBAL Confirmed By: Russ Rodriguez
--- NOTE | 2024-11-27 11:54 | EKG12_ITS ---
Test Reason : REPEAT CARDIOV Blood Pressure : */* mmHG Vent. Rate : 48 BPM Atrial Rate : 48 BPM P-R Int : 202 ms QRS Dur : 108 ms QT Int : 450 ms P-R-T Axes : 104 -20 -19 degrees QTcB Int : 402 ms Sinus bradycardia Otherwise normal ECG Confirmed by Russ Rodriguez ([id number]), editor in chief newspaper FIORDALIZA SHORT ([id number]) on 12/01/2024 1:16:22 PM Referred By: CG/UG Confirmed By: Russ Rodriguez
[2024-11-27] MEDS: 0.9% Normal Saline (1000mL) 1,000 ML 1000 ML IV (12:29)
== END 2024-11-27 13:22 | disposition home or self-care (01) ==
PROVIDERS: Emergency Provider Emergency Medicine; PCP Family Medicine; Visit Provider Emergency Medicine
DX: R00.2 Palpitations (principal); I48.4 Atypical atrial flutter; E11.9 Type 2 diabetes mellitus without complications; Z79.01 Long term (current) use of anticoagulants; Z87.891 Personal history of nicotine dependence; I10 Essential (primary) hypertension; Z95.5 Presence of coronary angioplasty implant and graft; I25.10 Atherosclerotic heart disease of native coronary artery without angina pectoris; E78.00 Pure hypercholesterolemia, unspecified; Z79.899 Other long term (current) drug therapy; Z79.84 Long term (current) use of oral hypoglycemic drugs; R00.1 Bradycardia, unspecified
CPT/HCPCS: 92960; 93005; 96361; 96374; 99283; A4216; J2405

== ENCOUNTER → 2024-11-28 | Outpatient (CLI) | payer MEDICARE, SELFPAY ==
--- NOTE | 2024-11-28 12:45 | ECHOD_ITS ---
Reason For Study Reason For Study: Afib, Aflutter Procedure This was a 2D Doppler, Color Flow transthoracic echocardiogram. Contrast injection was performed. Exam performed in department. Left Ventricle Normal LV size. Mild concentric left ventricular hypertrophy. Mild generalized LV hypokinesis. Estimated LVEF 45-50%. Stage III diastolic dysfunction. Right Ventricle Normal right ventricle. Atria There is moderate biatrial dilatation. Mitral Valve Mild (1+) mitral valve insufficiency. Tricuspid Valve Mild tricuspid valve insufficiency. Right ventricular systolic pressure estimated to be 45 mmHg. Aortic Valve Trisinus/trileaflet aortic valve. Pulmonic Valve The pulmonic valve is not well visualized. Great Vessels Normal sized aortic root. Pericardium/Pleural No pericardial effusion. Medication Diluted definity 2ml given slow IV push to enhance endocardial definition. MMode/2D Measurements & Calculations LVIDd: 5.2 cm IVSd: 1.2 cm Ao root diam: 3.5 cm LVIDs: 3.4 cm LVPWd: 1.2 cm RVDd: 3.6 cm FS: 33.4 % LAV(MOD-bp): 73.0 ml LVAd ap4: 33.9 cm2 SV(MOD-sp4): 51.7 ml LAV(MOD-bp) Indexed: 32.9 ml/m2 LVLd ap4: 8.4 cm SI(MOD-sp4): 23.3 ml/m2 LAV(MOD-sp2): 84.8 ml EDV(MOD-sp4): 112.6 ml LAV(MOD-sp4): 62.6 ml EDV(sp4-el): 115.9 ml LVAs ap4: 23.9 cm2 LVLs ap4: 7.7 cm ESV(MOD-sp4): 60.9 ml ESV(sp4-el): 63.1 ml EF(MOD-sp4): 45.9 % EF(sp4-el): 45.6 % SV(sp4-el): 52.8 ml LA A4 area: 22.0 cm2 LA dimension(2D): 4.8 cm RA A4 area: 15.6 cm2 TAPSE: 1.3 cm Time Measurements MV dec time: 0.15 sec Doppler Measurements & Calculations MV E max pablo: 96.7 cm/sec Lat Peak E' Pablo: 9.7 cm/sec Med Peak E' Pablo: 6.3 cm/sec MV A max pablo: 28.0 cm/sec E/E' lat: 10.0 E/E' med: 15.4 MV E/A: 3.4 MV dec slope: 659.8 cm/sec2 Ao V2 max: 93.9 cm/sec LV V1 max: 76.7 cm/sec Ao max P.5 mmHg LV V1 max P.4 mmHg Ao V2 mean: 67.9 cm/sec Ao mean P.0 mmHg Ao V2 VTI: 20.0 cm PA V2 max: 60.0 cm/sec TR max pablo: 276.9 cm/sec TR max P.7 mmHg ECHO/Echo Complete W/ Contrast Interpretation Summary Mild concentric left ventricular hypertrophy. Mild generalized LV hypokinesis. Estimated LVEF 45-50%. Stage III diastolic dys function. There is moderate biatrial dilatation. Mild (1+) mitral valve insufficiency. Mild tricuspid valve insufficiency. Right ventricular systolic pressure estimated to be 45 mmHg. Ordering Physician: Taras Fam Referring Physician: Pradeep Alvarado Performed By: Mary Fam, CAROLANN, RVT
== END | disposition home or self-care (01) ==
LOC: CVS 12:45
PROVIDERS: PCP Family Medicine; Referring Provider Nurse Practitioner Family; Visit Provider Nurse Practitioner Family
DX: I48.0 Paroxysmal atrial fibrillation (principal)
CPT/HCPCS: 93306; Q9957; A4216; C8929